=== PATIENT | male | born 1990 | race Caucasian/White ===

== ENCOUNTER 2022-09-01 06:40 | Inpatient (IN) | payer BC ==
[~2022-09-01] VITALS: Ht 177.8 cm; Wt 116.0 kg
--- NOTE | 2022-09-01 12:00 | NUR ---
PATIENT ARRIVED TO CCU ROOM 130 WITH THIS RN. PATIENT ABLE TO TRANSFER FROM [facility] TO BED ON HIS OWN. PATIENT IS STEADY ON HIS FEET, BUT SLOW AND IT IS PAINFUL TO MOVE. PATIENT IN BED AND OUTLINED RED AREAS NOTED ON RIGHT LOWER EXTREMITY. WILL CONTINUE TO CLOSELY MONITOR.
--- NOTE | 2022-09-01 13:30 | NUR ---
ULTRASOUND IN TO DO PATIENTS LEFT LOWER LEG IMAGING THAT WAS ORDERED.
--- NOTE | 2022-09-01 15:00 | NUR ---
PATIENTS LEFT FOREARM IV CAUSING PATIENT PAIN. IV SITE FLUSHED AND HAS BLOOD RETURN. REMOVED PATIENTS IV AND NEW IV PLACED IN LEFT LOWER FORARM. PATIENT TOLERATED WELL AND IV FLUSHES WITH NO ISSUES. PATIENT LIGHTS ADJUSTED. PATIENT UPDATED ON PLAN OF CARE. WILL CONTINUE TO CLOSELY MONITOR.
--- NOTE | 2022-09-01 15:35 | NUR ---
MED REC COMPLETE
--- NOTE | 2022-09-01 17:00 | NUR ---
PATIENT RESTING IN BED. PATIENTS VITALS STABLE. PATIENT UP WATCHING TV. PATIENT REPORTS PAIN IS WELL CONTROLLED AT THIS TIME. ISABELLE WILL BE IN TO CHECK BLOOD SUGAR. WILL CONTINUE TO CLSOELY MONITOR.
--- NOTE | 2022-09-01 17:00 | NUR ---
PT STOOD AT BEDSIDE TO VOID. HEART RATE UP INTO THE 130S. PT NOW BACK IN BED. HEART RATE REMAINS 110-120 AT REST. PT STATES HE SILAS SOME WEAKNESS WITH STANDING AND MILDLY SHORT OF BREATH. CALL LIGHT WITHIN REACH. WILL CONTINUE TO MONITOR.
--- NOTE | 2022-09-01 18:00 | NUR ---
UPDATED MD HANLEY OF PATIENTS HIGH BLOOD SUGAR. SEE NEW ORDERS ON EMAR. WALTON IN TO GIVE INSULIN.
--- NOTE | 2022-09-01 18:30 | NUR ---
THIS RN IN TO RECHECK PATIENTS TEMP. PATIENT REPORTS PAIN IS WELL CONTROLLED AT THIS TIME. PATIENTS AT THE BEDSIDE AND UPDATED ON PLAN OF CARE. WILL CONTINUE TO CLOSELY MONITOR. NO OTHER QUESTIONS AT THIS TIME. WILL CONTINUE TO CLOSELY MONITOR.
--- NOTE | 2022-09-01 19:35 | NUR ---
RECEIVED REPORT FROM DAY SHIFT RN. WOUNDS/REDNESS VISUALIZED WITH OTHER NURSE. PT IS A/O, RESPIRATIONS EVEN AND REGULAR. AT BEDSIDE. CALL MARY ANN HENDRICKS.
--- NOTE | 2022-09-01 20:22 | NUR ---
PATIENT UP TO THE BATHROOM WITH LIMITED ASSIST. PATIENT REPORTS PAIN 7/10, WORSE WITH MOVEMENT. SOME DRAINAGE NOTED ON MICHELLE AFTER PATIENT RETURNED TO BED. ELEAVTED RIGHT LEG ON PILLOW. PATIENT REMAINS ON MONITOR. PRN PAIN MEDS PROVIDED AND ICE OFFERED. PATIENT DECLINED ICE AT THIS TIME. PATIENT REPORTS HAVING VOIDED AND HAD LARGE BM, "NORMAL" FOR HIM. IV FLUIDS CONTINUE PER ORDER, SITE WNL X2.
--- NOTE | 2022-09-01 21:15 | NUR ---
PT MEDICATION ADMINISTRATION AND ASSESSMENT COMPLETED. OPEN WOUND TO RLE COVERED WITH NONADHERENT DRESSING. REDNESS TO RL HAS NOT SPREAD BEYOND LINE. PT RECEIVING K+ AND MAGNESIUM REPLACEMENT. IV ABX RUNNING. CALL LIGHT WITHIN REACH.
--- NOTE | 2022-09-01 22:50 | NUR ---
MEDICATION ADMINISTRATION COMPLETED. PT APPEARS TO BE SLEEPING COMFORTABLY. RESPIRATIONS EVEN AND REGULAR. CALL LIGHT WITHIN REACH.
--- NOTE | 2022-09-02 00:08 | NUR ---
PT ASSESSMENT COMPLETED. PT APPEARS TO BE SLEEPING COMFORTABLY. IV FLUIDS AND ABX RUNNING. RESPIRATIONS EVEN AND REGULAR. NO INCREASE IN REDNESS OR DRAINAGE NOTED FROM RIGHT LEG CELLULITIS. CALL LIGHT WITHIN REACH.
--- NOTE | 2022-09-02 02:35 | NUR ---
ROUNDED ON PT. PT C/O LUA, GIVEN PRN TYLENOL. IV FLUIDS RUNNING. NO INCREASE TO REDNESS ON RIGHT LEG. PT DENIES NEED TO USE RESTROOM ATT. CALL LIGHT WITHIN REACH.
--- NOTE | 2022-09-02 04:01 | NUR ---
PT ASSESSMENT COMPLETED. PT IS A/O, RESPIRATIONS EVEN AND REGULAR. ASSISTED PT TO STAND AT BEDSIDE TO USE URINAL. IV FLUIDS RUNNING.
--- NOTE | 2022-09-02 05:42 | NUR ---
MEDICATION ADMINISTRATION COMPLETED. PT IS A/O, SLEEPY. IV FLUIDS RUNNING. CALL LIGHT WITHIN REACH.
--- NOTE | 2022-09-02 07:40 | NUR ---
REPORT RECIEVED FROM GO GO DANCER RN. PATIENT RESTING IN BED. PER REPORT PATIENT OVERALL HAD A GOOD NIGHT. WILL CONTINUE TO CLOSELY MONITOR.
--- NOTE | 2022-09-02 07:44 | EKG ---
[facility] [address] [facility] [place], [place] [address] Signed Sinus tachycardia Possible Inferior infarct , age undetermined Abnormal ECG No previous ECGs available Confirmed by BRIDGETT HANLEY MD ([id number]) on 09/02/2022 7:44:19 AM Electronically Signed By: BRIDGETT HANLEY MD 09/02/22 0744 PATIENT NAME: PASQUALE MCDANIEL Electrocardiogram DATE OF : 88 PHYSICIAN: BRIDGETT HANLEY MD REPORT #: [id number] REPORT IS CONFIDENTIAL AND NOT TO BE RELEASED WITHOUT AUTHORIZATION
--- NOTE | 2022-09-02 10:00 | NUR ---
PATIENTS ASSESSMENT COMPLETED. PATIENTS BREATH SOUNDS CLEAR. BOWEL TONES ACTIVE. PATIENT REPORT HAVING A BM LAST NIGHT. PATIENTS RIGHT LEG RED AND SWOLLEN, BUT WITHIN THE BOARDER DRAWN ON LEG FROM ADMISSION. PATIENTS UPPER THIGH BLISTERS HAVE BOILED UP, BUT CURRENTLY NOT OPEN. SOME SMALLER BLISTERS NOTED ON INNER THIGH. WILL CLOSELY MONTIOR. PATIENT ALSO COMPLAINING OF RED,SWOLLE, ITCHY HANDS. BILATERAL HANDS ARE NOTED WITH ALL THE ABOVE. NO ACTUAL RASH NOTED. RASCH IN AT THE BEDSIDE TO ASSESS PATIENT AND REVIEW PLAN OF CARE. PATIENT WILL BE STARTED ON BENEDRYL. WILL MONITOR FOR ANY FURTHER ISSUES. NO OTHER RASH NOTED ON PATIENTS BODY. WILL CLOSELY MONITOR WHEN IV ABX ARE INFUSING.
--- NOTE | 2022-09-02 10:30 | NUR ---
PATIENT RESTING IN BED. LOTION APPLIED TO PATIENTS HANDS TO SEE IT IT HELPS SOOTHE THEM. ICE PACK PROVIDED WELL. MEDICATIONS GIVEN FOR ITCHYNESS ABOUT 45 MIN PRIOR. WILL CONTINUE TO CLOSELY MONITOR. PATIENTS ABX INFUSING. NO FURTHER SIGNS OF REACTION NOTED.
--- NOTE | 2022-09-02 10:36 | NUR ---
OVER TO THE UNIT, UPDATE RECVD FROM DANIEL WISE. INTO SEE PATIENT. PATIENT LIVES AT HOME WITH HIS AND CHILDREN. 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 PATIENT STATES NO DISCHARGE NEEDS AT THIS TIME. PATIENT HAS DISCUSSED CHANGE HIS PCP IN THE FUTURE. PCP LIST GIVEN. PATIENT STATES THAT HE WILL DISCUSS HIS OPTIONS WITH HIS WHO IS ALSO WANTING TO TRANSFER. ADVISED PATIENT IF HE FEELS HE HAS ANY OTHER DISCHARGE NEEDS HE WILL LET THE STAFF KNOW.
--- NOTE | 2022-09-02 10:45 | NUR ---
SPOKE WITH MD HANLEY ABOUT A SWAB COLLECTION FROM PATIENTS INFECTION SITE. NO NEW ORDERS AT THIS TIME.
--- NOTE | 2022-09-02 11:16 | NUR ---
PATIENT RESTING. PATIENTS HANDS REMAIN UNCHANGED. WILL CONTINUE TO CLOSELY MONITOR.
--- NOTE | 2022-09-02 12:30 | NUR ---
PATIENT GAVE SELF SMALL BEDBATH. PATIENT ALSO REFUSED LUNCH AT THIS TIME. WILL LET STAFF KNOW WHEN HE'S HUNGRY. CALL LIGHT AND PERSONAL ITEMS IN EASY REACH
--- NOTE | 2022-09-02 13:00 | NUR ---
PATIENT UP TO THE BATHROOM WITH HIS TO ASSIST. THIS RN PROVIDED PATIENT WITH WASHCLOTH AND WATER BASIN WITH SOAP TO WASH HIS BODY. EDUCATED PATIENT NOT TO SCRUB BLISTERS. PATIENT CHANGED HIS GOWN. NEW LINEN ON BED. FLOOR CLEANED. PATIENT NOW RESTING IN BED. WILL CONTINEU TO CLOSELY MONITOR.
--- NOTE | 2022-09-02 14:26 | NUR ---
PATIENT ASLEEP IN BED AT THIS TIME. PATIENT CALL APPROPRIATELY. OTHER RN IN TO START IV ABX. NO OTHER NEEDS AT THIS TIME. WILL CONTINUE TO CLOSELY KATARINA.
--- NOTE | 2022-09-02 16:00 | NUR ---
PATIENTS AND SON IN AT THE BEDSIDE TO VISIT. THIS RN UPDATE ARANA OF DARKER URINE WITH DECREASED URINE OUTPUT. PATIENT HAS REMAINED WITH A HR 95-110. BLOOD PRESSURES 95-115 SYSTOLIC. WILL CONTINUE TO CLOSELY MONTIOR.
--- NOTE | 2022-09-02 16:05 | NUR ---
SEE NEW ORDER FOR BOLUS OF FLUID AND INCREASE OF IV FLUIDS. PATIENT HAS BEEN ENCOURAGED TO HAVE GOOD ORAL INTAKE THROUGH THE DAY AND HAS DONE WELL WITH THIS WITH MINIMAL CHANGE TO URINE OUTPUT.
--- NOTE | 2022-09-02 17:59 | NUR ---
PATIENT FINISHED WITH HIS DINNER. PATIENT TOELRATED WELL. PATIENT NOW RESTING BACK IN BED. PATIENT ON 1L NC D/T SPO2 90% ON RA WITH REST. PATIENT NOW 96% ON 1L. PATIENT HAS URINAL AT THE BEDSIDE. PATIENT CALLS APPROPRIATELY. PATIENT STATES OCCASIONAL COUGH. THIS RN HAS NOT HEARD PATIENT COUGHING. WILL CLOSELY MONITOR. PATIENT FEELS SLEEPIER THIS AFTERNOON. PATIENT IS GETTING BENEDRYL SCHEDULED D/T RASH ON BILATERAL HANDS. PATIENT NOTED TO FEEL A LITTLE MORE CHILLY THIS EVENING. CHECKED TEMPERATURE IT WAS 99.1. WILL CONITNUE TO CLOSELY MONTIOR.
--- NOTE | 2022-09-02 19:31 | NUR ---
RECEIVED REPORT FROM DAY SHIFT NURSE. VISUALIZED RIGHT LEG CELLULITIS WITH DAY NURSE. PT IS A/O, RESPIRATIONS EVEN AND REGULAR. AT BEDSIDE.
--- NOTE | 2022-09-02 20:20 | NUR ---
PT ASSESSMENT AND MEDICATION ADMINISTRATION COMPLETED. PT IS A/O, RESPIRATIONS EVEN AND REGULAR. RIGHT LEG AND HAND SWELLING/REDNESS MONITORED. NO CHANGE SINCE START OF SHIFT. PT IS AT BEDSIDE. CALL LIGHT WITHIN REACH.
--- NOTE | 2022-09-02 22:10 | NUR ---
TO PT ROOM FOR MEDICATION ADMINISTRATION. PT IS A/O. SKIN ASSESSED/MONITORED FOR CHANGES. NO CHANGES NOTED. CALL LIGHT WITHIN REACH.
--- NOTE | 2022-09-03 00:20 | NUR ---
PT UP TO USE URINAL. DRAINAGE NOTED FROM BLISTERS ON RIGHT UPPER LEG. DRAINAGE IS SEROSANGUINEOUS. CALL LIGHT WITHIN REACH.
--- NOTE | 2022-09-03 01:58 | NUR ---
ROUNDED ON PT. PT APPEARS TO BE SLEEPING COMFORTABLY. RESPIRATIONS EVEN AND REGULAR. REMAINS ON 1L NC WHILE SLEEPING. NO DRAINAGE NOTED TO RIGHT LEG. IV FLUIDS RUNNING.
--- NOTE | 2022-09-03 03:06 | NUR ---
NEW BAG LR ADMINISTERING PER ORDERS ON EMAR. PATIENT APPEARS TO BE RESTING SOUNDLY, EYES CLOSED, APPEARS CALM. VS WNL. BREATHING EVEN AND REGULAR, 02 SAT 94% RA. CALL LIGHT WITHIN REACH.
--- NOTE | 2022-09-03 03:43 | NUR ---
PT ASSESSMENT COMPLETED. PT REQUESTED BENADRYL, TYLENOL GIVEN FOR HEADACHE. PT IS A/O, RESPIRATIONS EVEN AND REGULAR. CALL LIGHT WITHIN REACH.
--- NOTE | 2022-09-03 06:04 | NUR ---
TO PT ROOM FOR MEDICATION ADMINISTRATION. PT IS A/O, RESPIRATIONS EVEN AND REGULAR. IV FLUIDS RUNNING. NO NEW DRAINAGE NOTED TO RIGHT LEG.
--- NOTE | 2022-09-03 07:30 | NUR ---
REPORT RECEIVED. PATIENT IS RESTING WITH HOB ELEVATED SLIGHTLY. IVF PATENT.
--- NOTE | 2022-09-03 08:00 | NUR ---
ASSESSMEMT DONE. RIGHT THIGH IS SWOLLEN AND WITH MANY BLISTERS, SOME OF THE BLISTERS ARE DRAINING. RATES PAIN IN RIGHT LEG 4/10, HAS A HEADACHE WELL. ENC DEEP BREATHING. TALKED WITH PATIENT ABOUT POC FOR THE DAY, INDICATES UNDERSTANDING.
--- NOTE | 2022-09-03 09:00 | NUR ---
TOOK BREAKFAST POOR. STATES HE HASN'T HAD AN APPETITE. DENIES NAUSEA. SAT AT BEDSIDE TO VOID. OXYCODONE GIVEN FOR PAIN.
--- NOTE | 2022-09-03 10:00 | NUR ---
SLEEPING, VANCO INFUSING.
--- NOTE | 2022-09-03 12:00 | NUR ---
ASSESSMENT COMPLETE. HUMALOG INSULIN 9 UNITS GIVEN. SITTING UP IN BED FOR LUNCH. NO CHANGES IN RIGHT LEG CELLULITIS. HAS BEEN TAKING WATER WELL. IVF NOW INUSING AT 100 ML/HR.
--- NOTE | 2022-09-03 14:30 | NUR ---
OXYCODONE 5 MG IV GIVEN FOR RIGHT LEG PAIN.
--- NOTE | 2022-09-03 16:00 | NUR ---
ASSESSMENT UNCHANGED. HAS SLIGHT FEVER. DR. ARANA AWARE. NO FUTHER ORDERS AT THIS TIME.
--- NOTE | 2022-09-03 17:00 | NUR ---
UP TO SHOWER CHAIR. TO SHOWER IN 118.
--- NOTE | 2022-09-03 17:45 | NUR ---
TOLERATED SHOWER WELL. BACK TO BED W/O INCIDENT. ACCUCHECK-296. NOVALOG 9 UNITS GIVEN. LONG ACTIVE INSULIN 50 UNITS SQ GIVEN. PATIENT IS NOW REFUSING DINNER. SAID HE WOULD TRY AND EAT THE GRAPES AND FRUIT CUP. WHILE PATIENT WAS IN THE SHOWER, A FEW OF THE BIG BLISTERS ON THE UPPER INNER RIGHT THIGH DID BREAK. PATIENT SAID HIS THIGH IS ITCHING. NO TREATMENT GIVEN.
--- NOTE | 2022-09-03 19:19 | NUR ---
SLEEPING, NO DISTRESS NOTED. IVF INFUSING AT 75 ML/HR. REPORT TO NEXT SHIFT.
--- NOTE | 2022-09-03 21:00 | NUR ---
PATIENT UP TO THE BEDSIDE TO VOID. PATIENT NEEDS SOME ASSISTANCE AND HOLDS THE WALKER FOR STABILITY. PATIENT DRIBBLES URINE DOWN BOTH LEGS AND ONTO THE FLOOR. CHUCKS ON BED HAVE A MODERATE AMOUNT OF DRAINAGE FROM THE RIGHT LEG BLISTERS. CHUCKS CHANGED AND PATIENT ASSISTED IN CLEANING UP. DISCUSSED WOUND CARE OPTIONS WITH PATIENT; BOTH HIM AND HIS WOULD PREFER THE OPEN AREAS BE COVERED. PRN PAIN MEDS PROVIDED.
--- NOTE | 2022-09-03 21:45 | NUR ---
PATIENT'S RIGHT LEG CLEANED WITH WOUND CLEANSER AND PAT DRY. LARGE AMOUNT OF YELLOW DRAINAGE NOTED IN INNER RIGHT THIGH. PETROLIUM/IODINE INFUSED GAUZE APPLIED FOR BARRIER PROTECTION IN UPPER THIGH, THEN MEDI-HONEY ON NON-ADHEARNT PADS ON LOWER. COVERED WITH ABD PADS FOR ABSORPTION. WRAPPED THIGH WITH JEFFREY WRAP. LOWER LEG COVERED WITH NON-ADHEARANT PAD AND KERLEX. TEDHOSE APPLIED TO BOTH LEGS. ASSISTED PATIENT TO PUT FRASH LOOSE FITTING BOXERS ON. MICHELLE PADS CHANGED. PATIENT TOLERATED WITH ADEQUATE PAIN CONTROL AND APPRICIATES THE COMPRESSION. RESTING IN BED. NO OTHER NEEDS AT THIS TIME. AT BEDSIDE.
--- NOTE | 2022-09-03 22:48 | NUR ---
PATIENT PROVIDED WITH SCHEDULED MEDS, INCLUDING ACCU CHECK AND SSI. PATIENT'S IS CONCERNED ABOUT PATIENT'S ABILITY TO PROVIDE HIS OWN INSULIN SHOTS. EDUCATION PROVIDED AND PATIENT SUCESSFULLY ADMINISTERED HIS OWN INSULIN SHOT. PATIENT'S AT BEDSIDE. ASSISTED PATIENT TO USE THE URNAL. NO OTHER NEEDS AT THIS TIME. CALL LIGHT IN REACH.
--- NOTE | 2022-09-04 01:21 | NUR ---
PT ASKS FOR URINAL, PROVIDED. PT STATES HE HAS 3/10 RIGHT LEG PAIN, PRN PAIN MED PROVIDED. PRN SLEEP MED PROVIDED. CALL LIGHT IN REACH.
--- NOTE | 2022-09-04 02:30 | NUR ---
PATIENT PLACED ON 2L NC DUE TO APPARENT SLEEP APNEA. PATIENT WOKE EASILY AND DENIED ANY OTHER NEEDS.
--- NOTE | 2022-09-04 05:00 | NUR ---
PATIENT CALLED FOR ASSISTANCE USING THE URNAL. PATIENT VOIDED 700 MLS CLEAR URINE. REPORTS FEELING MORE RESTED THIS MORNING. COMPRESSION ON LEG FEELS GOOD AND NO DRAINAGE NOTED. IV SITE WNL, IV FLUIDS PER ORDER. ORAL TEMP WNL BUT PATIENT IS HOT AND SWEATING. WILL CONTINUE TO MONITOR.
--- NOTE | 2022-09-04 08:00 | NUR ---
ASSESSMENT DONE. STATES HE FEELS BETTER TODAY. DRESSING TO RIGHT LEG INTACT, DRESSING IS DRY TO TOUCH. LEO HOSE ON. IVF PATENT AT 50 ML/HR INFUSING. TALKED WITH PATIENT ABOUT POC FOR DAY, INDICATES UNDERSTANDING.
--- NOTE | 2022-09-04 08:30 | NUR ---
VANCO TROUGH DRAWN.
--- NOTE | 2022-09-04 09:15 | NUR ---
RESTING, NO DISTRESS NOTED. TALKED WITH PHARMACY ABOUT VANC TROUGH LEVEL, PHARMACY WILL TALK WITH DR. ARANA ABOUT THIS.
--- NOTE | 2022-09-04 11:00 | NUR ---
DRESSING TO RIGHT THIGH REDRESSED. TOLERATED WELL.
--- NOTE | 2022-09-04 11:35 | NUR ---
ACCUCHECK 305. HUMALOG INSULIN 16 UNITS GIVEN. PATIENT GAVE HIMSELF THE INSULIN. DID WELL. ASSESSMENT DONE. PATIENT REMAINS IN ROOM. IVF CONTINUES TO INFUSE AT 50 ML/HR.
--- NOTE | 2022-09-04 13:57 | NUR ---
ADMINISTERED MEDICATIONS SCHEDULED ON OCT. PATIENT RESTING BACK IN BED, WITH AT BEDSIDE. PROVIDED EDUCATION WITH POTASSIUM AND THE MEDICATION. ASKING QUESTIONS. ANSWERED QUESTIONS AND CONCERNS. PATIENT VOIDED 600 ML OF YELLOW URINE. CALL LIGHT WITHIN REACH. NO OTHER NEEDS AT THIS TIME.
--- NOTE | 2022-09-04 15:07 | NUR ---
PATIENT UP AMBULATING TO WITH WALKER AND STBY ASSIST. TOLERATED FAIR AT FIRST AND ABLE TO AMBULATE TO THE NURSES STATION BEFORE REQUESTING TO GO BACK TO ROOM. PATIENT BECAME TACHY HR NOTED 120-125 WITH ACTIVITY, PATIENT BECAME PALE AND RATED PAIN 7/10 ON PAIN SCALE. PATIENT ALSO ROTATES FOOT OUT LATERALLY AND TAKES STEPS WITH TIPPY TOES. PATIENT APPEARS UNSTEADY WITH WALKER, PROVIDED EDUCATION AND DIRECTION WITH FALL SAFETY AND IMPORTANCE OF STRAIGHTENING LEG MORE. PATIENT ABLE TO DEMONSTRATE TEACHING, BUT TOLERATED POORLY. BACK TO ROOM PATIENT TO BED, APPLIED NEW ABD DRESSINGS TO BLISTERS THAT ARE DRAINING ON THE MEDIAL ASPECT OF THE INNER THIGH. NOTED INCREASED FLUID IN BLISTERS AFTER ACTIVITY. APPLIED LIGHT PRESSURE AND ABLE TO MOBILIZE FLUID OUT THROUGH ESTABLISHED OPENING OF BLISTER. REAPPLIED JEFFREY WRAP TO REINFORCE ABDS. PATIENT VERBALIZED DRESSING COMFORTABLE. REPORTED ACTIVITY AND FINDINGS TO PRIMARY NURSE JAMEL.
--- NOTE | 2022-09-04 16:00 | NUR ---
ASSESSMENT UNCHANGED. PATIENT REMAINS IN ROOM.
--- NOTE | 2022-09-04 16:40 | NUR ---
AMBULATED TO BR TO USE URINAL. USING WALKER WHEN AMBULATING. BACK TO BED W/O INCIDENT.
--- NOTE | 2022-09-04 18:34 | NUR ---
PATIENT AMBULATED TO BATHROOM, SBA W/WALKER. TOLERATED VERY WELL. PT STATED, "IT WAS EASIER TO GET UP THIS TIME". PATIENT CURRENTLY BACK IN BED AFTER VOIDED. CALL LIGHT WITHIN REACH.
--- NOTE | 2022-09-04 19:45 | NUR ---
PT ASSESSED AND FOUND TO BE RESTING COMFORTABLY IN BED. PT IS A&O X 4 WITH A GCS OF 15. SAFETY CHECK PERFORMED, AND ALARM LIMITS SET. NURSE CALL LIGHT PROVIDED TO PT AT BEDSIDE. PT WITH NO NEEDS OR QUESTIONS AT THIS TIME.
--- NOTE | 2022-09-05 06:25 | NUR ---
PT REMAINS AWAKE, ALERT AND ORIENTED WITH A GCS OF 15. PT IS CAM ICU NEGATIVE. PT MOVES ALL FOUR EXTREMITIES WITH PURPOSE AND CMS INTACT THROUGHOUT. PT HAS BEEN IN A NSR, NORMOTENSIVE AND A-FEBRILE THROUGHOUT THE NIGHT. PT WITH GOOD ORAL INTAKE, AND ADEQUATE UO. PT'S R. LOWER EXTREMITY CONTINUES TO BE WARM TO TOUCH, WITH EDEMATOUS ERYTHEMA AND WEEPING PUSTULES ALONG GROWN AND THIGH. LABS: PT WITH WORSENING LEUKOCYTOSIS. CREATNINE SLIGHTLY IMPROVED. MD CONSULTED REGARDING WORSENING WBC COUNT AND CONCERN FOR PUD PROPHYLAXIS. NO NEW ORDERS OBTAINED.
--- NOTE | 2022-09-05 08:00 | NUR ---
ASSESSMENT DONE. ACCUCHECK 151 4 UNIT HUMALOG INSULIN TO BE GIVEN. OOB TO BR TO VOID TO URINAL THEN TO CHAIR. USING WALKER FOR AMBULATION. TALKED WITH PATIENT ABOUT POC FOR THE DAY, INDICATES UNDERSTANDING. DRESSING TO RIGHT UPPER THIGH INTACT WITH DRAINAGE NOTED ON DRESSING AND CHUX.
--- NOTE | 2022-09-05 08:48 | NUR ---
SITTING IN CHAIR EATING BREAKFAST. IVF INFUSING.
--- NOTE | 2022-09-05 09:00 | NUR ---
REMAINS IN CHAIR. IS W/O C/O. ENC DEEP BREATHING.
--- NOTE | 2022-09-05 09:31 | NUR ---
NAPPING IN CHAIR. RESP EVEN AND NON-LABORED. O2 SAT ON RA-93.
--- NOTE | 2022-09-05 10:10 | NUR ---
UPDATE RECVD FROM JAMEL WISE, PATIENT DOING BETTER. PER AM MEETING PATIENT MAY TRANSFER TO MS FLOOR TODAY. PATIENT UP TO SHOWER WITH IRIS MOSES, APPEARS TO BE DOING WELL.
--- NOTE | 2022-09-05 10:50 | NUR ---
DR. ARANA HERE TO SEE PATIENT. DRESSING TO RIGHT THIGH TAKEN OFF BY DR. ARANA. DR. ARANA TALKED WITH PATIENT ABOUT CELLUTITIS INFECTION AND CONTINUED CARE. PATIENT THEN TO BR TO VOID. AMBULATED TO SHOWER IN ROOM 118. SPECIALTY SALES REPRESENTATIVE TO GIVE PATIENT SHOWER.
--- NOTE | 2022-09-05 11:00 | NUR ---
PATIENT AMBULATED TO [facility] FOR SHOWER. PATIENT WAS ABLE TO CLEAN MOST OF RIGHT THIGH WITH LITTLE ASSISTANCE, REMOVING SKIN. THIS IT WEB DEVELOPMENT CONSULTANT WASHED LOWER PART OF HIS LEG. PATIENT AMBULATED BACK TO ROOM, SITTING IN CHAIR. BILLIE MCCULLOUGH IN TO REDRESS THIGH. PATIENT WAS PAINFUL WITH ACTIVITY, BUT TOLERATED WELL.
--- NOTE | 2022-09-05 11:30 | NUR ---
RIGHT THIGH DRESSING REAPPLIED, TOLERATED DRESSING CHANGE WELL.
--- NOTE | 2022-09-05 12:00 | NUR ---
ASSESSMET COMPLETE. ACCHUCHEK DONE, 204, HUMALOG INSULIN 4 UNITS SQ GIVEN.
--- NOTE | 2022-09-05 12:40 | NUR ---
OXYCODONE GIVEN FOR PAIN.
--- NOTE | 2022-09-05 15:00 | NUR ---
BACK TO BED. HAS BEEN SITTING IN CHAIR MOST OF THE DAY.
--- NOTE | 2022-09-05 15:15 | NUR ---
ORDERS RECIEVED TO TRANSFER PATIENT TO MED-SURG. PATIENT TO STAY IN ROOM 130 HOUSE CONVENIENCE. PATIENT IS AWARE. MONITOR DC'D. BACK TO BED FROM CHAIR. MOVING WELL.
--- NOTE | 2022-09-05 17:10 | NUR ---
ACCUCHECK 187. HUMALOG INSULIN 4 UNITS GIVEN. UP TO BR TO VOID.THEN TO CHAIR.
--- NOTE | 2022-09-05 19:31 | NUR ---
NO CHNAGES. REPORT TO NEXT SHIFT.
--- NOTE | 2022-09-05 20:00 | NUR ---
PT ASSESSED AND FOUND TO BE SITTING IN CHAIR WITH PRESENT. PT DOES NOT APPEAR TO BE IN ANY DISTRESS. PT IS A&O X 4 WITH A GCS. PT FOLLOWS COMMANDS APPROPRIATELY AND ABLE TO MOVE ALL EXTREMITIES WITH PURPOSE. V/S ASSESSED. PT NOTED TO BE FEBRILE. DR. ARANA CONSULTED AND ORDERS TO OBTAIN A NEW SET IF BC'S OBTAINED. PT WITH NO NEEDS AT THIS TIME. CALL LIGHT AT PATIENTS SIDE.
--- NOTE | 2022-09-06 06:17 | NUR ---
Assessment performed with no acute measures necessary. All vital signs stable with no indications or complaints of respiratory distress, fever or pain. Patient is awake but resting in bed. Will continue to monitor.
--- NOTE | 2022-09-06 06:19 | NUR ---
Patient notified of move to rm 124. All vital signs stable.
--- NOTE | 2022-09-06 07:40 | NUR ---
pt laying in bed. bs taken. no further needs. call light within reach
--- NOTE | 2022-09-06 09:56 | NUR ---
MORNING ASSESSMENT COMPLETE. PT LYING AWAKE IN BED. APPEARS TO BE IN NO DISTRESS. STATES PAIN IS 3/10, DISCUSSED PAIN MEDICATION SCHEDULE. RIGHT LEG ELEVATED ON PILLOWS, REDNESS TO RIGHT INNER THIGH/GROIN RECEDING FROM PREVIOUSLY OUTLINED AREA. XEROFORM TO OPEN AREA IN PLACE, PEELNG SKIN NOTED OUTSIDE OF DRESSING. COMPRESSION STOCKINGS IN PLACE TO BLE. RIGHT KEN NOTED TO HAVE XEROFORM AND MEDI HONEY IN PLACE OVER SCATTERED SCABS. PT DENIES FURTHER NEEDS AT THIS TIME. CALL LIGHT IN REACH.
--- NOTE | 2022-09-06 13:40 | NUR ---
Spoke with Ky. He wants to go home. Denies needs, but states he could use a walker or a cane. Does not think he will need for long. I gave him the sheet for [employer]. Let him know they will lend him medical equipment for 3 months for free.
--- NOTE | 2022-09-06 19:58 | NUR ---
RECEIVED REPORT FROM DAY SHIFT RN. PATIENT IS RESITNG IN BED. PRESENT IN ROOM. DAY SHIFT RN ADMIN PAIN MEDICATION. PATIENT ASSISTED TO BR A SBA W/FWW. PATIENT ABLE TO VOID. PATIENT IS BACK IN BED RESTING. NO FURTHER NEEDS NOTED. CALL LIGHT IN REACH.
--- NOTE | 2022-09-06 22:04 | NUR ---
PATIENT ASSISTED TO THE BR A SBA W/FWW. PATIENT ABLE TO VOID. PATIENT IS BACK IN BED RESTING. PATIENTS VITALS TAKEN AND RECORDED. INTAKE AND OUTPUT RECORDED. PATIENTS IV FLUSHED. PATIENTS PM MEDS PER ORDER. PATIENT RATES PAIN AT A 3/10 AND DENIES THE NEED FOR INTERVENTION AT THIS TIME. PATIENT PROVIDED WITH FRESH WATER. SEE ASSESMENT FOR WOUND DOCUMNETATION ON RLE. PATIENT DENIES ANY FURTHER NEEDS. CALL LIGHT IN REACH.
--- NOTE | 2022-09-06 23:00 | NUR ---
SBA. PATIENT GOT UP TO THE BATHROOM USING WALKER. PATIENT VOIDED 600ML YELLOW URINE. PATIENT IS BACK IN BED. DRINKING CUP REFILLED WITH TAP WATER. NO OTHER NEEDS AT THIS TIME.
--- NOTE | 2022-09-07 00:01 | NUR ---
PATIENT RATES PAIN AT A 4/10, PRN PAIN MEDICATION PER ORDER. PATIENT DENIES ANY FURTHER NEEDS. CALL LIGHT IN REACH.
--- NOTE | 2022-09-07 02:32 | NUR ---
PT AWAKE AND RIGHT THIGH DRESSING WAS BECOMING LOOSE, PRIMARY RN MAXINE REQUESTED FOR WOUND CONSULT TO BE COMPLETED. JEFFREY BANDAGE, ABD AND XEROFORM DRESSING REMOVED, XEROFORM GAUZE DRY AND LOOSELY ADHERED IN SEVERAL AREAS. WOUND MEASURED 19XM X 20CM X 1-2MM, SEVERAL AREAS FULL THICKNESS TO ADIPOSE. WOUND CLEANSED WITH HEBICLEANSE SOAP AND WATER, HYDROGELL IMPREGNATED GAUZE APPLIED TO WOUND BED, COVERED WITH NON- ADHERENT FOAM ALLEVYN, SECURED WITH KERLIX AND JEFFREY. PT NOW RESTING ON LEFT SIDE WITH LEG SUPPORTED WITH PILLOW.
--- NOTE | 2022-09-07 02:35 | NUR ---
WOUND CARE COMPLETED BY THIS RN AND ROAD MACHINE OPERATOR. SEE WOUND CARE NOTE. PATIENT RATES PAIN AT A 3/10, PRN MEDS PER ORDER. PATIENT DENIES ANY FURTHER NEEDS. CALL LIGHT IN REACH.
--- NOTE | 2022-09-07 03:12 | NUR ---
PATIENT CALLLED TO HAVE HIS URINAL EMPTIED. DONE. DRINKING CUP REFILLED WITH TAP WATER. NO OTHER NEEDS AT THIS TIME.
--- NOTE | 2022-09-07 04:17 | NUR ---
PATIENT IS RESTING IN BED WITH EYES CLOSED, RR 18. CALL LIGHT IN REACH.
--- NOTE | 2022-09-07 06:06 | NUR ---
PATIENTS AM MEDS PER ORDER. VITALS TAKEN AND RECORDED. INTAKE AND OUTPUT RECORDED. IV FLUSEHD AND SL PER ORDER. PATIENT RATES PAIN AT A 1/10 AND DENIES THE NEED FOR INTERVENTION AT THIS TIME. NO FURTHER NEEDS NOTED. CALL LIGHT IN REACH.
--- NOTE | 2022-09-07 07:04 | NUR ---
REPORT FROM Monika MCKEON RN. PATIENT ALERT AND ORIENTED. DENIES NEEDS AT THIS TIME. CALL LIGHT IN REACH.
--- NOTE | 2022-09-07 10:26 | NUR ---
C/O DRESSING SLIPPING TO RIGHT LEG. JEFFREY WRAP REMOVED AND REPLACED. PRN ANALGESIC ADMINISTERED. DENIES OTHER NEEDS AT THIS TIME.
--- NOTE | 2022-09-07 12:00 | NUR ---
Spoke with Ky, he cont. to want to go home, but understands he needs to be off IV antibiotics. He denies any needs.
--- NOTE | 2022-09-07 14:18 | NUR ---
PT ALERT, ORIENTED AND SITTING UP IN BED EATING LUNCH. PT SEEMED SOMEWHAT SURPRISED BY MY VISIT,JUST BEGAN TO CONNECT AND STAFF CAME TO CARE FOR PT. GAVE BLESSING AND WILL CHECK BACK
--- NOTE | 2022-09-07 17:54 | NUR ---
JEFFREY WRAP AND GAUZE REMOVED DUE TO DISCOMFORT AND SLIDING OF DRESSING. REWRAPPED WITH GAUZE AND KERLIX TO PREVENT MOVEMENT OF DRESSING. TOLERATED WELL. DENIES OTHER NEEDS AT THIS TIME. CALL LIGHT IN REACH.
--- NOTE | 2022-09-07 19:15 | NUR ---
BEDSIDE REPORT RECEIVED, PT RESTING WITHOUT REQUEST, RECENTLY VOIDED YELLOW URINE, DENIES REQUESTS.
--- NOTE | 2022-09-07 19:45 | NUR ---
PT AWAKE REQUESTING HIS BANDAGE TO BE ADJUSTED, PLAN TO COMPLETE WITH ADDITIONAL RN.
--- NOTE | 2022-09-07 20:22 | NUR ---
PT AWAKE AND ALERT, VS DONE, PT VOIDING WELL PER URINAL REQUESTING PAIN MED, MEDICATED WITH OXYCODONE 10MG PER REQUEST, ASSESSMENT COMPLETED, ACCUCHECK 170, 3 UNITS INSULIN GIVEN PER SS ORDER. RIGHT THIGH DRESSING CHANGED PER MARÍA WISE. SL INTACT RIGHT HAND. PT ATTEMPTING TO REST AFTER DRESSING CHANGE.
--- NOTE | 2022-09-07 22:00 | NUR ---
PT RESTING QUIETLY, WITHOUT REQUEST.
--- NOTE | 2022-09-08 00:33 | NUR ---
PT AWAKE AND ALERT, VOIDING WELL PER URINAL, REQUESTING TYLENOL AND OXYCODONE 5MG FOR RIGHT UPPER LEG, GIVEN PER ORDER, IV ANTIBIOTIC COMPLETED RIGHT SL FLUSHES WELL SITE INTACT, PT REPOSITION SELF TO SIDE, WITHOUT OTHER REQUEST, RESTING.
--- NOTE | 2022-09-08 02:30 | NUR ---
PT ASLEEP, WITHOUT DISTRESS, FRESH WATER GIVEN.
--- NOTE | 2022-09-08 04:22 | NUR ---
PT AWAKE, REQUESTING URINAL TO BE EMPTIED, VOIDING WELL, REQUESTING OXYCODONE 5 MG FOR RIGHT THIGH PAIN, MEDICATED PER ORDER, WITHOUT FURTHER REQUEST, RESTING.
--- NOTE | 2022-09-08 04:26 | NUR ---
PT AWAKE AND ALERT, RESP REG, REQUESTING OXYCODONE 5MG FOR PAIN 4/10 IN RIGHT THIGH, MEDICATED PER ORDER, VOIDING WELL, WITHOUT OTHER REQUEST.
--- NOTE | 2022-09-08 05:25 | NUR ---
PT AWAKE, ALERT, STATES PAIN LEVEL IS DOWN TO 2/10, DENIES NEEDS, VS DONE, LAB IN FOR AM BLOOD DRAW, I/0 AND ASSESSMENT DONE.
--- NOTE | 2022-09-08 05:44 | NUR ---
ANCEF INFUSING WELL PER PUMP PER RIGHT HAND SL, SITE INTACT, PT RESTING WITH EYES CLOSED, RESP REG.
--- NOTE | 2022-09-08 09:00 | NUR ---
REPORT RECEIVED FROM NIGHT RN AND PT CARE RESUMED. PT. IS ALERT AND ORIENTED TO ALL. HE REPORTS 3/10 PAIN IN RIGHT THIGH. REFUSES PAIN MED. AT THIS TIME. DRESSING ON R THIGH REWRAPPED BY KIANNA WISE. DRESSING IS DRY AND INTACT. LEG ELEVATED ON PILLOW. ASSESSMENT COMPLETED AND MEDS ADMIN. PT. ASSISTED WITH BREAKFAST SET UP. DISCUSSED SHOWERING, AMBULATING AND GOING OUTSIDE. CALL LIGHT IN REACH.
--- NOTE | 2022-09-08 09:28 | NUR ---
QUAD SWAB COLLECTED
--- NOTE | 2022-09-08 09:30 | NUR ---
PT. REQUESTS PRN PAIN MED. C/O 11/28 PAIN IN RIGHT THIGH. CISO. WILL CONTINUE TO MONITOR.
--- NOTE | 2022-09-08 10:37 | NUR ---
Patient is alert and oreiented. He complains often of pain and winces. He was given 5mg po oxycodone. Lungs sounded good but where slightly diminished anterior and posterior in all quadrants, no crackles. GI asswessment consisted of not a lot of auditory sounds, very little in the uper and lower right abdomen, left sounds were WDL. Skin looked adgitated, red, adipose tissue exposed, LRE, upper thigh. Broght a warm blanket to patuient as well as changed thermastat to 70.
--- NOTE | 2022-09-08 11:40 | NUR ---
PT. C/O PRESSURE FROM JEFFREY WRAP AND REQUESTS THAT IT BE REMOVED. SKIN AROUND WOUND ON RIGHT THIGH IS INDURATED AND REDDENED. JEFFREY WRAP REMOVED AND KERLEX HAD MODERATE SEROUS DRAINAGE. KERLEX REPLACED. PT. AMBULATED TO CHAIR WITH FWW. IV ABX ADMIN. EDUCATED ON S/SX OF INFILTRATION. WILL CONTINUE TO MONITOR.
--- NOTE | 2022-09-08 12:01 | NUR ---
Chewcked blood sugar which was 166. Bed was changed. Patient was moved to chair and kurlex was chaned, kip wrap taken off. pain 09/30
--- NOTE | 2022-09-08 13:59 | NUR ---
I checked on the patient, checked vitals, administered Acef, listened to his lungs and they were easier to hear with him sitting up. He mentioned liking sitting in his chair because he could see his childrens pictures. I offered to relocate his pictures so he can see them better
--- NOTE | 2022-09-08 14:28 | NUR ---
PT. STATES WILL BE HERE WITH CHILDREN AT 1800 AND DISCUSSED PAIN MANAGEMENT BEFORE AMBULATING. ASSESSMENT COMPLETED.
--- NOTE | 2022-09-08 14:34 | NUR ---
Gave patient warm planket. Transitioned patient from chair to bed with walker, safely. Turned off lights per the request of patient.
--- NOTE | 2022-09-08 15:09 | NUR ---
No change in plan for CM.
--- NOTE | 2022-09-08 15:39 | NUR ---
PT. DRESSING ON RIGHT THIGH IS NO LONGER INTACT. HYDROGEL DRESSING DRIED TO WOUND. IRRIGATED WITH NS AND REMOVED. DRESSING REPLACED PER ORDER. PT. REPORTS 3/10 PAIN THAT IS TOLERABLE AFTER DRESSING CHANGE. CALL LIGHT IN REACH.
--- NOTE | 2022-09-08 16:54 | NUR ---
I gave the patient a bed bath, a shampoo head cap, a toothbrush, tooth paste and a bason, lotion as well as I lathered lotion on the dry areas of his leg and new socks.
--- NOTE | 2022-09-08 17:54 | NUR ---
I chekced vitals of patient and his flat expression seems like it is worsening. It seems like he has depression. He is not watching anyhting or trying to occupy his brain, he is only sitting and stairing into space.
--- NOTE | 2022-09-08 21:20 | NUR ---
PT RESTING IN BED A&O X4. PT REPORTS PAIN IS 2/10 AT THIS TIME, NO NEED FOR PRN MEDS PER PT D/T TOLERABLE. PT REPORTS NO NAUSEA, N/T, DIZZINESS, SOB AT THIS TIME. IV SITE WNL, IV ABX INFUSING AT THIS TIME. LUNG SOUNDS ARE CLEAR THROUGHOUT, PULSES PRESENT THROUGHOUT, BOWEL TONES ARE HYPOACTIVE X4. VSS. PT USED IS X3 W/THIS RN IN ROOM REACHING 2200. KERLEX AND JEFFREY WRAP REWRAPPED OVER WOUND, REDNESS HAS RECEEDED FROM MARKED LINE, ALLEVYNS ARE C/D/I. LEG IS ELEVATED ON PILLOW AT THIS TIME. CALL LIGHT WITHIN REACH, NO FURTHER NEEDS AT THIS TIME. ICE WATER PROVIDED.
--- NOTE | 2022-09-08 23:00 | NUR ---
in to empty urinal for pt, pt provided a pillow, asked to see rn for a question, no further needs at this time
--- NOTE | 2022-09-08 23:00 | NUR ---
IN PT ROOM FOR START OF ABX VANCO INFUSION. IV SITE WNL, NO BLOOD RETURN BUT FLUSHES W/EASE, PT REPORTS NO PAIN AT SITE. PT EDUCATED ABOUT NEED TO REPORT ANY BURNING/PAIN AT IV SITE, STATES VERBAL UNDERSTANDING. VANCO INFUSING AT THIS TIME DIRECTED. PT REPORTS PAIN 4/10, REQUESTS PRN OXY, GIVEN (SEE EMAR). KERLEX/JEFFREY FALLING DOWN LEG AT THIS TIME, REWRAPPED. CALL LIGHT WITHIN REACH, NO FURTHER NEEDS AT THIS TIME.
--- NOTE | 2022-09-09 01:03 | NUR ---
PT RESTING W/EYES CLOSED. RESPIRATIONS ARE EVEN AND UNLABORED, NO SIGNS OF DISTRESS. CALL LIGHT WITHIN REACH.
--- NOTE | 2022-09-09 01:21 | NUR ---
IN PT ROOM D/T BEEPING PUMP. PT IV SITE WNL, NOW SALINE LOCKED. BEDSIDE URINAL EMPTIED AND RECORDED ON BOARD. PT IS RESTING W/EYES CLOSED, AWAKENS TO VOICE. PT APPEARS COMFORTABLE AT THIS TIME. CALL LIGHT WITHIN REACH, NO FURTHER NEEDS.
--- NOTE | 2022-09-09 02:16 | NUR ---
PT RESTING W/EYES CLOSED. RESPIRATIONS ARE EVEN AND UNLABORED, NO SIGNS OF DISTRESS. CALL LIGHT WITHIN REACH.
--- NOTE | 2022-09-09 03:40 | NUR ---
IN PT ROOM TO EMPTY URINAL PER ANSWERED CALL LIGHT, RECORDED OUTPUT. NO ACUTE CHANGES FROM PREVIOUS ASSESSMENT. PT REPORTS 4/10 HEADACHE PAIN, PRN TYLENOL GIVEN. PT REPORTS NO NAUSEA, DIZZINESS, SOB, OR N/T AT THIS TIME. KERLEX AND JEFFREY WRAP REWRAPPED, ALLEVYNS IN PLACE, NO SIGNS OF DRAINAGE (C/D/I). IV SITE WNL. ICE WATER PROVIDED. CALL LIGHT WITHIN RECH, NO FURTHER NEEDS AT THIS TIME.
--- NOTE | 2022-09-09 06:03 | NUR ---
IN PT ROOM FOR IV ABX INFUSION START. PT REPORTS HEADACHE PAIN 2/10 AT THIS TIME. PT DECLINES NEED FOR PRN OXY, ICE PACK, COLD RAG AT THIS TIME. IV SITE WNL, PT REPORTS SLIGHT BURN W/INITIAL FLUSH, READJUSTED AND PT REPORTS NO PAIN W/FLUSH. VSS. CALL LIGHT WITHIN REACH, NO FURTHER NEEDS AT THIS TIME.
--- NOTE | 2022-09-09 09:15 | NUR ---
REPORT RECEIVED FROM NIGHT RN AND PT CARE RESUMED. PT IS ALERT AND ORIENTED TO ALL. RIGHT THIGH WOUND DRESSING INTACT WITH MILD DRAINAGE ON FOAM. KERLEX AND JEFFREY WRAP REPLACED THEY HAD BECOME DISPLACED. ASSESSMENT COMPLETED. PT. AMBULATED 1 LAP AROUND UNIT WITH SBA AND FWW AND TOLERATED WELL. IV SITE HAS NOT REDDNESS OR S/SX OF INFILTRATION. PT. REPORTS PAIN THOUGH AND DISCUSSED STARTING NEW IV BEFORE IV ABX. LEFT RESTING WITH STUDENT RN LEIGHA THE ROOM
--- NOTE | 2022-09-09 10:40 | NUR ---
PT INITIATED TAKING A SHORT WALK FROM HIS ROOM THIS MORNING. HE AMBULATED WITH HIS 4WW APPROX 20 YARDS IN THE MS HALLWAY THEN BACK TO HIS ROOM WITH ONE PERSON STAND BY ASSIST. HE THEN RESTED IN HIS RECLINER WITH FEET ELEVATED.
--- NOTE | 2022-09-09 10:44 | NUR ---
WENT IN TO DO HIS I&O EMPTIED OUT HIS URINAL. GOT HIM SOME FRESH CUP OF ICE WATER. ASKED HIM IF HE WOULD LIKE TO BRUSH HIS TEETH AND WASH HIS FACE AND HE SAID NOT RIGHT NOW.
--- NOTE | 2022-09-09 11:48 | NUR ---
DID 15 MINUTE CHECK AFTER STARTING VANCO. ABX IS INFUSING WELL AND PT STATED HE HAS 0/10 PAIN AT INFUSION SITE. IV SITE IS INTACT WITH NO INFILTRATION NOTED.
--- NOTE | 2022-09-09 14:52 | NUR ---
RIGHT THIGH DRESSING CHANGED PER ORDERS AND PT TOLERATED WELL. MEDS ADMIN AND ASSESSMENT COMPLETED. CALL LIGHT IN REACH.
--- NOTE | 2022-09-09 16:45 | NUR ---
Spoke with Dr. Jackson and pt may dc on Monday. Pt would like wound care at the wound clinic. Orders completed and delivered to Fatoumata at the clinic. Pt scheduled for appro 0830 on Monday. They will work out a schedule with the pt. 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
--- NOTE | 2022-09-09 19:15 | NUR ---
RECEIVED REPORT FROM MICA WISE. PT RESTING IN BED W/FAMILY IN ROOM AT THIS TIME. PT REPORTS MILD HEADACHE/RT LEG PAIN AT 2/10 AND REQUESTS PRN TYLENOL AT THIS TIME, GIVEN (SEE EMAR). IV SITE WNL AND SALINE LOCKED. CALL LIGHT WITHIN REACH, PT REPORTS NO FURTHER NEEDS AT THIS TIME.
--- NOTE | 2022-09-09 20:40 | NUR ---
IN ROOM FOR INSULIN ADMIN AND ASSESSMENT. LUNGS ARE CLEAR THROUGHOUT, PT ON RA W/O2 SATS >90%, OCCASIONAL NONPRODUCTIVE COUGH, PRN TESSALON GIVEN (SEE EMAR). PT REPORTS PAIN 2/10 AT THIS TIME, NO NAUSEA, N/T, DIZZINESS, OR SOB. PULSES PRESENT THROUGHOUT, ACTIVE BOWEL TONES X4. DRESSING HAS UPLIFTED, NEW DRESSING CHANGE PERFORMED PER WOUND CHANGE ORDER, SECURED WITH KEFLEX AND JEFFREY WRAP, PT TOLERATED WELL. PT IS A&O X4. IV SITE WNL. CALL LIGHT WITHIN REACH, WATER PROVIDED, NO FURTHER NEEDS AT THIS TIME.
--- NOTE | 2022-09-09 22:00 | NUR ---
IN PT ROOM FOR ABX ADMIN, IV SITE WNL. URINAL EMPTIED, OUTPUT RECORDED. JEFFREY WRAP ADJUSTED D/T FELL DOWN LEG. CALL LIGHT WITHIN REACH, NO FURTHER NEEDS AT THIS TIME.
--- NOTE | 2022-09-09 23:09 | NUR ---
IN PT ROOM FOR HANGING OF VANCO ABX. IV SITE IS WNL, BRISK BLOOD RETURN AND FLUSHES W/EASE. INFUSION STARTED (SEE EMAR). PT EDUCATED ABOUT SIGNS OF INFILTRATION SUCH REDNESS, BURNING, PAIN, PT VERBALIZED UNDERSTANDING. MELATONIN GIVEN PER PT REQUEST FOR SLEEP AID (SEE EMAR). PT STATES PAIN 2/10 AT THIS TIME, PRN OXY GIVEN (SEE EMAR). CALL LIGHT WITHIN REACH, NO FURTHER NEEDS AT THIS TIME.
--- NOTE | 2022-09-10 00:03 | NUR ---
PT RESTING W/EYES CLOSED. RESPIRATIONS ARE EVEN AND UNLABORED, NO SIGNS OF DISTRESS. CALL LIGHT WITHIN REACH. ABX INFUSING DIRECTED, IV SITE WNL AT THIS TIME.
--- NOTE | 2022-09-10 00:40 | NUR ---
IN PT ROOM TO SALINE LOCK AFTER ABX INFUSION, IV SITE WNL. PT REPORTS NO PAIN AT THIS TIME. PT NOW RESTING W/EYES CLOSED. CALL LIGHT WITHIN REACH, STATES NO FURTHER NEEDS AT THIS TIME.
--- NOTE | 2022-09-10 02:13 | NUR ---
PT RESTING ON BACK W/EYES CLOSED. RESPIRATIONS ARE EVEN AND UNLABORED, NO SIGNS OF DISTRESS. CALL LIGHT WITHIN REACH.
--- NOTE | 2022-09-10 04:27 | NUR ---
VSS, I&O'S ALSO CHARTED. FRESH WATER PROVIDED. PRIMARY RN SOULEYMANE REMAINS IN ROOM FOR PRN MEDICATION ADMINISTRATION. NO ADDITIONAL NEEDS, CALL LIGHT IN REACH.
--- NOTE | 2022-09-10 04:47 | NUR ---
IN PT ROOM D/T ANSWERED CALL LIGHT FOR ASSISTANCE W/DRESSING. ALLEVYNS ARE INTACT W/SMALL AMOUNT OF YELLOWISH DRAINAGE AT CENTER OF DRESSING. KERLEX AND JEFFREY WRAP REWRAPPED AROUND SITE. NO ACUTE CHANGES FROM PREVIOUS ASSESSMENT. VSS. PT REPORTS NO NAUSEA, DIZZINESS, SOB, OR N/T. PT REPORTS INNER THIGH PAIN AT 4/10 AT THIS TIME, PRN OXY GIVEN AT PT REQUEST (SEE EMAR). PT REPORTS MILD ITCHING ON LOWER BELLY W/SMALL AMOUNT OF REDNESS. PT REPORTS INCREASE OF COUGHING, PRN MUCINEX GIVEN (SEE EMAR). CALL LIGHT WITHIN REACH, NO FURTHER NEEDS AT THIS TIME. FRESH WATER PROVIDED.
--- NOTE | 2022-09-10 08:30 | NUR ---
REPORT RECEIVED FROM NIGHT RN AND PT CARE RESUMED. PT. IS DROWSY BUT AWAKENS EASILY TO VOICE. RATES PAIN1/10 IN RIGHT THIGH. ORIENTED TO ALL. ASSESSMENT COMPLETED. JEFFREY WRAP ON RIGHT THIGH REAPPLIED. FOAM DRESSINGS BELOW WRAP HAVE SCANT YELLOW DRAINAGE AND ARE INTACT. DISCUSSED AMBULATING AND POC. LEFT RESTING WITH CALL LIGHT IN REACH.
--- NOTE | 2022-09-10 10:36 | NUR ---
patient went on a walk down the workman, he tolerated it well. Patient said his leg was sore when we got back to the room. call light within reach, no further needs at this time.
--- NOTE | 2022-09-10 11:38 | NUR ---
MEDS ADMINISTERED. PT. STATES HE IS CONCERNED THAT HIS GRANDFATHER WAS FOUND UNRESPONSIVE AND ON HIS WAY TO THE ER. HE ASKS IF HE CAN VISIT HIM THERE. PT. INSTRUCTED TO CONTACT GRANDFATHER'S CAREGIVE. RIGHT THIGH REWRAPPED WITH JEFFREY WRAP. DENIES FURTHER NEEDS. LEFT RESTING WITH CALL LIGHT IN REACH.
--- NOTE | 2022-09-10 12:59 | NUR ---
PT CALL LIGHT ON. IV PUMP ALARMING, INFUSION COMPLETE. IV FLUSHED AND SALINE LOCKED PER PROTCOL, ALCOHOL CAP APPLIED. PT DENEIS ADDITIONAL REQUESTS OR COMPLAINTS. CALL LIGHT WITHIN REACH. BED RAILS UP. PTS PRIMARY NURSE UPDATED.
--- NOTE | 2022-09-10 13:16 | NUR ---
PT. ASSESSMENT COMPLETE. PT. ENCOURAGED TO AMBULATE AGAIN. STATES HE NEEDS A NAP FIRST. IV SALINE LOCKED. CALL LIGHT IN REACH.
--- NOTE | 2022-09-10 15:07 | NUR ---
ROUNDING ON PT. HE IS RESTING IN BED WITH LIGHTS OFF. HE DENIES PAIN. STATES HE IS WORRIED ABOUT HIS GRANDFATHER. PT. COMFORTED. URINAL EMPTIED AND PT. LEFT RESTING WITH CALL LIGHT IN REACH.
--- NOTE | 2022-09-10 16:40 | NUR ---
PT. C/O DRY COUGH. ADMIN PRN MED. DENIES FURTHER NEEDS. CALL LIGHT IN REACH.
--- NOTE | 2022-09-10 17:39 | NUR ---
RIGHT THIGH WOUND DRESSING MODERATELY SATURATED WITH YELLOW DRAINAGE. REDRESSED. WOUND BED 100% COVERED IN SLOUGH TISSUE. HORTENSIA WOUND RED WITH EPITHELIIZING BORDER. THIGH IS REDDENED AND INDURATED. PT. TOLERATED WELL. DISCUSSED VISITING GRANDFATHER ON COMFORT CARE IN RM 122. TRIPLE VALVE MECHANIC CALLED FOR PERMISSION.
--- NOTE | 2022-09-10 19:10 | NUR ---
RECEIVED REPORT FROM MICA WISE. PT IS IN ROOM W/ AT THIS TIME. CALL LIGHT WITHIN REACH, NO NEEDS AT THIS TIME.
--- NOTE | 2022-09-10 21:05 | NUR ---
IN PT ROOM FOR INSULIN ADMIN, PT TOLERATED WELL. 3 UNITS GIVEN FOR BS OF 168. ASSESSMENT PERFORMED. PT STATES PAIN 2/10 AT THIS TIME AND TOLERABLE IN RT THIGH. DRESSING IS C/D/I, SECURED W/KERLEX AND JEFFREY WRAP. BACKSIDE IS INTACT, NO SIGNS OF SKIN BREAKDOWN AT THIS TIME. LUNG SOUNDS ARE CLEAR THROUGHOUT, PT HAS INFREQUENT OCCASIONAL DRY COUGH. PULSES PRESENT THROUGHOUT. BOWEL TONES ACTIVE X4. PT REPORTS NO NAUSEA, DIZZINESS, N/T, SOB AT THIS TIME. IV SITE WNL, NO REDNESS/BURNING/PAIN NOTED BY PT, FLUSHES W/EASE. AT BEDSIDE, ALL QUESTIONS ANSWERED AT THIS TIME. PT IS A&O X4. CALL LIGHT WITHIN REACH, NO FURTHER NEEDS AT THIS TIME.
--- NOTE | 2022-09-10 23:10 | NUR ---
IN PT ROOM FOR ADMIN OF ABX. IV SITE WNL, FLUSHES W/EASE, PT REPORTS NO PAIN OR BURNING AT IV SITE W/FLUSH. PT SLEEPING IN RECLINER AT BEDSIDE. PT REQUEST PRN COUGH MEDICATION, MUCINEX GIVEN (SEE EMAR). PT STATES PAIN 3/10 AT THIS TIME, REQUESTS OXY, GIVEN (SEE EMAR). PT REQUESTS MED FOR SLEEP AID, PRN MELATONIN GIVEN (SEE EMAR). DRESSING REMAINS C/D/I AT THIS TIME. CALL LIGHT WITHIN REACH, NO FURTHER NEEDS AT THIS TIME.
--- NOTE | 2022-09-11 03:10 | NUR ---
PT RESTING W/EYES CLOSED. RESPIRATIONS ARE EVEN AND UNLABORED, NO SIGNS OF DISTRESS. SLEEPING AT BEDSIDE IN RECLINER. CALL LIGHT WITHIN REACH.
--- NOTE | 2022-09-11 04:05 | NUR ---
IN PT ROOM D/T ANSWERED CALL LIGHT FOR WARM BLANKET. PT REPORTS NO PAIN, NAUSEA, N/T, DIZZINESS, SOB AT THIS TIME. PT CONTINUES TO HAVE OCCASIONAL, DRY COUGH. DRESSING IS C/D/I AT THIS TIME SECURED W/KERLEX AND JEFFREY WRAP. IV SITE WNL AND SALINE LOCKED. NO ACUTE CHANGES FROM PREVIOUS ASSESSMENT. CALL LIGHT WITHIN REACH, NO FURTHER NEEDS AT THIS TIME.
--- NOTE | 2022-09-11 06:07 | NUR ---
vss and i&o's complete. iv abx infusing as directed, see emar. primary rn vick remains in room, no additional needs or concerns verbalized. call light in reach.
--- NOTE | 2022-09-11 06:09 | NUR ---
IN PT ROOM FOR ADMIN OF ABX AND SOUMYA ASSET PROTECTION OFFICER IN ROOM FOR VS AND I/O'S. PT RESTING W/EYES CLOSED BUT AWAKENS TO VOICE. PT REPORTS NO NEEDS AT THIS TIME. CALL LIGHT WITHIN REACH.
--- NOTE | 2022-09-11 08:13 | NUR ---
PT RESTING IN BED. PT IS AWAKE. WHITE BOARD UPDATED. CALL LIGHT IN REACH. URINAL EMPTIED. NO FURTHER NEEDS AT THIS TIME.
--- NOTE | 2022-09-11 09:10 | NUR ---
TYLENOL 650MG PO ADMIN FOR REPORTS OF 5/10 RIGHT UPPER LEG PAIN.
[2022-09-11] MEDS ORDERED: CEFDINIR300 MG PO (10:05)
[2022-09-11] MEDS ORDERED: DOXYCYCLINE HY100 M3 PO (10:06)
[2022-09-11] MEDS ORDERED: MUCINEX600 MG PO (10:12)
[2022-09-11] MEDS ORDERED: INSULIN GL100 UNIT/1 SUB-Q (10:15)
[2022-09-11] MEDS ORDERED: HUMALOG100 UNITS/ SUB-Q (10:16)
[2022-09-11] MEDS ORDERED: BLOOD GLUCOSE1 EAC5 MISC (10:18)
--- NOTE | 2022-09-11 14:52 | NUR ---
Diabetic education done by this RN with patient throughout day. Patient able to demonstrate proper self administration of insulin. Patient able to verbalize his understanding of his insulin sliding scale and reports he feels comfortable going home with insulin. arrived to pick patient up for discharge and noted to be upset with discharge plan to leave with s/s insulin as she reports she feels patient was not properly educated on diabetes and sliding scale. Patient reports a nurse informatics educator did come to see him and discussed diet/insulin use but he thought the doctor was instead sending him home with oral diabetic medication instead. this RN provided additional education on insulin sliding scale use as well as diabetes. Written sliding scale provided to patient and at this time. Per , she reports there's nothing I can do regarding her frusteration, she feels staff was "rude to her the other day". This RN explained to that I was not here the other day and I want to ensure she and her have all their concerns addressed before they leave the hospital. Called Dr. Jackson to let him know patient thought he was discharging with diabetic oral medications rather than insulin. Per Dr. Jackson, no changes to be made to discharge medications at this time as he feels insulin is indicated for optimal patient care. Let patient and know Dr. Jackson wants to keep ordered insulin upon discharge. and report they have no further questions at this time and understand their discharge information and plan of care moving forward.
== END 2022-09-11 14:45 | disposition home or self-care (01) | DRG 872 ==
LOC: ED 06:40 → MS 10:55 → CCU 10:55 → MS 09-06 06:08
PROVIDERS: ADMIT Internal Medicine; ATTEND Family Medicine
DX: A41.01 Sepsis due to Methicillin susceptible Staphylococcus aureus (principal); L03.115 Cellulitis of right lower limb; N17.9 Acute kidney failure, unspecified; E87.1 Hypo-osmolality and hyponatremia; Z20.822 Contact with and (suspected) exposure to COVID-19; E11.65 Type 2 diabetes mellitus with hyperglycemia; L30.9 Dermatitis, unspecified; T39.395A Adverse effect of other nonsteroidal anti-inflammatory drugs [NSAID], initial encounter; E87.6 Hypokalemia; N14.11 Contrast-induced nephropathy; T50.8X5A Adverse effect of diagnostic agents, initial encounter; B97.4 Respiratory syncytial virus as the cause of diseases classified elsewhere; Z88.5 Allergy status to narcotic agent; Z79.4 Long term (current) use of insulin; Z79.899 Other long term (current) drug therapy
CPT/HCPCS: 36415; 71045; 73701; 76882; 80048; 80053; 80202; 81001; 83036; 83605; 83735; 85007; 85025; 85610; 85730; 87040; 87502; 93005; 93010; 93971; 94760; A9270; C9803; J0690; J0692; J1650; J1815; J1885; J2405; J3370; J3475; J7030; J7060; J7121; Q9967; U0003

== ENCOUNTER 2022-09-21 15:12 | Inpatient (IN) | payer BC ==
[~2022-09-21] VITALS: Ht 177.8 cm; Wt 103.0 kg
[~2022-09-21 15:12] MED LIST: BLOOD GLUCOSE1 EAC5 MISC; CEFDINIR300 MG PO; DOXYCYCLINE HY100 M3 PO; HUMALOG100 UNITS/ SUB-Q; INSULIN GL100 UNIT/1 SUB-Q; MUCINEX600 MG PO
--- NOTE | 2022-09-21 15:50 | NUR ---
PATIENT AMBULATES INTO FACILITY WITH SPOUSE TO BE DIRECT ADMITTED FROM DR. POWELL [facility] WITH SPOUSE PRESENT. ASSESSMENT COMPLETED. IV STARTED X1 ATTEMPT. BLOOD PULLED FROM IV AND SPECIMEN SENT TO LAB. PHOTOS OF WOUND OBTAINED.
[2022-09-21] MEDS ORDERED: CEFDINIR300 MG PO (16:43)
[2022-09-21] MEDS ORDERED: DOXYCYCLINE HY100 MG PO (16:43)
--- NOTE | 2022-09-21 17:25 | NUR ---
medications reconciled
--- NOTE | 2022-09-21 17:51 | NUR ---
DRY GAUZE AND KERLIX TO RIGHT THIGH PER VERBAL ORDERS DR. POWELL.
--- NOTE | 2022-09-21 19:34 | NUR ---
Received bedside report from offgoing shift, hourly rounding initiated.
--- NOTE | 2022-09-21 20:33 | NUR ---
In pt room for medication administration. Pt resting on back, states the dressing on leg came off, replaced bandage as previously wrapped as there were no orders for wound care, Pt given medications as scheduled, call light in reach, no complaint of pain
--- NOTE | 2022-09-22 00:12 | NUR ---
In pt room for medication administrations - Pt given scheduled Tylenol, no complaint of pain, call light in reach.
--- NOTE | 2022-09-22 00:14 | NUR ---
Pt made NPO, states understanding of necessity, no complaint. Call light in reach.
--- NOTE | 2022-09-22 02:15 | NUR ---
IN pt room for rounding, VS, and I&O's. Pt resting on back, eyes closed, no complaint of pain or discomfort. Pt VS stable, remains NPO and call light is in reach.
--- NOTE | 2022-09-22 04:17 | NUR ---
In pt room for rounding. Pt resting on back, eyes closed, breathing is even and unlabored. Pt has no indication of pain or discomfort, call light is in reach.
--- NOTE | 2022-09-22 06:50 | NUR ---
IN pt room for rounding, medication adminsitration, dressing change. Pt has no complaint of pain, remains NPO, Surgery checklist started, call light in reach
--- NOTE | 2022-09-22 09:20 | NUR ---
Entered patient's room where he was resting comfortably in bed. His was visiting in the room with him. Student nurse Ghazal and I gave patient his CHG presurgical bath with the help of patient and his without any complications.
--- NOTE | 2022-09-22 09:30 | NUR ---
REPORT RECEIVED FROM NIGHT RN AND PT. CARE RESUMED PT. IS ALERT AND ORIENTED TO ALL. AT BEDSIDE. PT. REPORTS MILD STINGING AT RIGHT THIGH WOUND SITE BUT REFUSES PAIN MEDS. WOUND DRESSED WITH GAUZE WITH SMALL AMOUNT OF YELLOW DRAINAGE. LEG IS INDURATED, WARM AND RED. ASSESSMENT COMPLETED. MEDS ADMIN. PRE-OP CHECK LIST COMPLETED. LEFT RESTING WITH CALL LIGHT IN REACH.
--- NOTE | 2022-09-22 14:21 | NUR ---
PT TAKEN TO OR FOR SURGERY. WILL FOLLOW
--- NOTE | 2022-09-22 15:30 | NUR ---
PT. ARRIVED FROM PACU AND REPORT GIVEN AT BEDSIDE. PT. C/O 5/10 PAIN AT SURGICAL SITE. PRN BRUSH FILLER HAND. PT. TOLERATING FLUIDS AND JELLO. AT BEDSIDE. ASSESSMENT COMPLETED. WOUND VAC SET TO 120 SUCTION AND DRESSING INTACT WITHOUT LEAKS. CPOX IN PLACE. WILL CONTINUE TO MONITOR.
--- NOTE | 2022-09-22 15:39 | HP ---
[facility] [address], [place] [address] Signed ADMISSION DATE: 09/21/2022 REASON FOR ADMISSION: Necrotizing soft tissue infection, right medial thigh; longstanding diabetes, recent cellulitis with progressive skin necrosis. INDICATION: This 32-year-old white man was hospitalized between September 01 and September 11 at [facility]. He is initially evaluated by Dr. Bridgett Dolan. All three hospitalists participated in his care ultimately. He was admitted with pain in the proximal right lower extremity in the medial aspect five days prior to his recent admission. He does have chronic eczema of the lower extremity in the region of the bates. He was identified as having significant cellulitis of the proximal thigh. He additionally was considered to have a sinus infection and uvula infection. His primary physician is AMY Ely. He is also seen by Dr Gudino in the same office. The patient does have diabetes and hypertension. A CT scan had been performed showing soft tissue swelling and concern made for possible DVT. He was hospitalized initially in the intensive care unit for sepsis and severe cellulitis. He did not undergo surgical consultation while hospitalized, but then was referred to the outpatient wound care team for various dressings were applied to the area showing necrotic skin. I was advised of his problem and I saw him in the office today regarding his persistent swelling of the medial thigh as well as necrotic skin. Office evaluation showed him to have dermis (eschar) in a serpiginous configuration in the medial aspect of the right thigh as well as edema and swelling of the erythematous cellulitic soft tissue nearby. He is admitted at this time for further evaluation and care to likely undergo debridement tomorrow. PAST MEDICAL HISTORY: Notable for diabetes mellitus. HOME MEDICATIONS: Recently have included: 1. Cefdinir 300 mg p.o. b.i.d. 2. Doxycycline 100 mg p.o. b.i.d. 3. Insulin glargine 40 units subcu with dinner. 4. Human Humalog lispro insulin as needed by sliding scale. REVIEW OF SYSTEMS: Electronically Signed By: MICHAEL POWELL MD 09/22/22 1539 PATIENT NAME: PASQUALE MCDANIEL HISTORY AND PHYSICAL DATE OF : 88 REPORT #: [id number] PHYSICIAN: MICHAEL POWELL MD PCP: LUCA GUDINO MD REPORT IS CONFIDENTIAL AND NOT TO BE RELEASED WITHOUT AUTHORIZATION [address] [address] Signed He denies any fever or chills at this time. He is accompanied by his who affirms this. He has had a fair amount of serous drainage from the open wound in the medial thigh. He has had no fever or chills. SOCIAL HISTORY: He is . He does work, though he has been off work since the September 01 as noted. PHYSICAL EXAMINATION: GENERAL: A pleasant white man, who does not look systemically toxic at this time. VITAL SIGNS: Temperature is 97.4, pulse 92, blood pressure 134/84. NECK: Normal. CHEST: Clear. HEART: Regular without murmur. ABDOMEN: Soft and nontender. It is obese. There is no sign of cellulitic change of the abdomen. EXTREMITIES: Lower extremities are examined showing an erythematous, edematous medial right thigh with a serpiginous area of yellow eschar necrotic tissue. There is opening near the eschar allowing for drainage of serous fluid. The right bates area has chronic dermatitis from presumed eczema. There is no evidence clinically of deep venous thrombosis. Left side is normal. A 2-3 cm nodule is noted in the right medial calf with cord-like extension proximally suggestive of resolving thrombophlebitis... there is little tenderness and no erythema there. LABORATORY STUDIES: At admission today show white count of 7.2, hematocrit 36, platelets 650,000. Chem profile shows a creatinine of 1.14. Electrolytes are normal. Calcium is 9.4. Serology; negative for coronavirus or influenza. ASSESSMENT: He was treated with rather significant and severe cellulitis of the right proximal thigh, which likely had some area of undrained purulence at one time, now only serous drainage, but definitely with persistent necrotic tissue including skin, subcutaneous tissue, and so on. I have admitted him to the hospital for antibiotic administration, anticipating radical debridement tomorrow. Sparing of viable skin would be beneficial. He may require wide enough resection of the tissue that he will have a sizable soft tissue defect of the medial right thigh. Likely wound management will include a wound VAC device and possibly ultimately rotational flap for closure or even skin grafting depending on the situation. He will absolutely not improve in an outpatient setting and requires hospitalization and more aggressive care at this time. Electronically Signed By: MICHAEL POWELL MD 09/22/22 1539 PATIENT NAME: PASQUALE MCDANIEL HISTORY AND PHYSICAL DATE OF : [birth year] REPORT #: [id number] PHYSICIAN: MICHAEL POWELL MD PCP: LUCA GUDINO MD REPORT IS CONFIDENTIAL AND NOT TO BE RELEASED WITHOUT AUTHORIZATION [address] [address] Signed PLAN : ADMIT for broad spectrum antibiotics, iv fluid administration and preparation for operative debridement tomorrow. MD RUSSELL Monson/MODL /[id number] cc: MD James Madden, MD Moni Corrales, MD Christin Vo, PA-C Copies: BRIDGETT DOLAN MD,MONI VO,CHRISTIN PAC ~ Electronically Signed By: MICHAEL POWELL MD 09/22/22 1539 PATIENT NAME: PASQUALE MCDANIEL HISTORY AND PHYSICAL DATE OF : [birth year] REPORT #: [id number] PHYSICIAN: MICHAEL POWELL MD PCP: LUCA GUDINO MD REPORT IS CONFIDENTIAL AND NOT TO BE RELEASED WITHOUT AUTHORIZATION
--- NOTE | 2022-09-22 15:53 | NUR ---
09/22/22 Scott3 Lorena Le 1425 PT ARRIVED TO PACU WITH ORAL AIRWAY AND ON 10L VIA MASK, RESP EVEN AND UNLABORED. JAW THRUST USED OFF AND ON TO MAINTAIN AIRWAY. 1429 PT MOVING IN BED AND OPENS HIS EYES TO TACTILE STIMULI, ORAL AIRWAY REMOVED. RN REORIENTING PT TO PACU. PT HR INCREASES AND PT REPORTS PAIN. PT GRAMCING.
--- NOTE | 2022-09-22 17:10 | NUR ---
Spoke with pt and his .Pt has returned for I&D of chronic wound. Pt was scheduled for 3 x a week dressing changes, but was returning daily due to excessive drainage. I&D was completed and pt has an in house wound vac in place at this time. Pt cont. to live at home with his . They have multiple steps to get into their home, but was in all is ground level. Pt denies issues getting up steps and they have rails. Pt has a cane. Per pt's FMLA ended last weekend and [facility]. Pt plans on dc to home when cleared medically. Emailed Silvia Nance from [employer] [facility] that contacts with their company. If not, will contact [facility] for a wound vac.
--- NOTE | 2022-09-22 17:40 | NUR ---
ASSESSMENT COMPLETED. WOUND VAC INTACT AND DRAINING A SCANT AMOUNT OF SEROSAGUINOUS FLUID. PT. RATES PAIN 3/10 BUT REFUSES PAIN MEDS AT THIS TIME. VITALS STABLE. PT. EATING DINNER WITH AT BEDSIDE. WILL CONTINUE TO MONITOR.
--- NOTE | 2022-09-22 18:41 | NUR ---
PT. ATE 90% OF DINNER REPORTS TOLERABLE PAIN IN RIGHT THIGH SURGICAL SITE. WOUND VAC DRESSING INTACT AND DRAINING SCANT AMOUNT OF SS FLUID. SURG SITE REMAINS UNCHANGED. VITALS STABLE. PT. LEFT RESTING WITH CALL LIGHT IN REACH.
--- NOTE | 2022-09-23 02:00 | NUR ---
PT LYING IN BED RESTING QUIETLY. RESP EVEN ET UNLABORED. ABLE TO MAKE NEEDS KNOWN. PT HAS WOUND VAC TO RIGHT UPPER THIGH SEAL TIGHT WITH SMALL AMOUNT OF SEROSANGUINOUS FLUID INN CANNISTER. PT HAS NO COMPLAINT OF PAIN OR DISTRESS AT THIS TIME. REMAINS AT BEDSIDE.
--- NOTE | 2022-09-23 07:45 | NUR ---
MAT BEDSIDE WITH BILLIE HUTCHISON, STUDENT NURSE INSTRUCTOR, PT WAS WILLING TO AMBULATE WITH CANE TO THE SECOND NURSES' STATION FROM HIS ROOM, HE DID THIS WITHOUT DIFFICULTY, HE RATED HIS PAIN AT 3/10. PT THEN RETURNED TO HIS ROOM TO HIS RECLINER, CALL LIGHT WITHIN REACH. H/T ASSESMENT DONE
--- NOTE | 2022-09-23 09:00 | NUR ---
REPORT RECEIVED FROM NIGHT RN AND PT. CARE RESUMED. PT. IS ALERT AND ORIENTED TO ALL. AMBULATED 2 LAPS AROUND THE UNIT WITH SBA AND TOLERATED WELL. WOUND VAC DRESSING INTACT WITHOUT LEAKS AND DRAINING SS FLUID. AREA AROUND RIGHT THIGH WOUND IS INDURATED AND RED. PT. REPORTS PAIN IS TOLERABLE AT THIS TIME AND 10. MEDS ADMIN AND PT. LEFT RESTING WITH CALL LIGHT IN REACH.
--- NOTE | 2022-09-23 09:47 | NUR ---
CALLED [employer] AND ASKED THEM TO ADD GLUCERNA TO LUNCH MEAL- OK'D PER BILLIE NINO. NOTIFIED BILLIE HUTCHISON, STUDENT SERVICES ACCOUNT MANAGER.
--- NOTE | 2022-09-23 10:18 | NUR ---
SPOKE TO DILLON, CONVICT GUARD, WHO CONFIRMED THAT SHE IS SCHEDULED TO HAVE A DIET CONSULTATION WITH PT. IT WAS NOTED THAT PT HAS HAD 29LB WEIGHT LOSS SINCE HIS FIRST ADMISSION ON 09/01/22. PT IS EAGER TO DISCUSS DIET AND DIABETIC EDUCATION TO PROMOTE WOUND HEALING. DILLON WAS WILLING TO COME AND PROVIDE EDUCTION TO PT BEFORE NOON TODAY. AT BEDSIDE WITH PT TO DISCUSS CONSULT AND TO DO VITALS AND PAIN ASSESSMENT. CALL LIGHT WITHIN REACH AND PT RESTING COMFORTABLY.
--- NOTE | 2022-09-23 11:15 | NUR ---
PT. C/O 10/28 LEG PAIN AND REQUESTS PAIN MEDS. PRN SPECIAL PROCEDURE TECHNOLOGIST. PT. HAD QUESTIONS ABOUT WOUND VAC OUTPATIENT CARE. ALL QUESTIONS ANSWERED. LEFT RESTING WITH CALL LIGHT IN REACH.
--- NOTE | 2022-09-23 11:21 | NUR ---
ROUNDING ON PT. HE C/O 10/28 "STINGING" PAIN AT RIGHT THIGH WOUND SITE. ADMIN PRN PAIN MED. PT. DENIES FURTHER NEEDS. CALL LIGHT IN REACH.
--- NOTE | 2022-09-23 16:09 | NUR ---
PATIENT AND I DID ONE LAP AROUND MED SURG. PATIENT IS NOW BACK IN BED. BEEN UP IN HIS CHAIR FOR MOST OF DAY. SO HE DECIDED TO EAT HIS DINNER IN BED.
--- NOTE | 2022-09-23 16:28 | NUR ---
Wound vac auth received from [employer]. To go bag given to pt and nurses updated bag is in the room. Dr. De La Rosa notified by text auth received. Discussed with pt, supplies and vac in bag. Understanding stated. Also discussed with pt when he is finished with the vac, he needs to call the company and ask for a box and address sticker to return vac. Do not return dirty vac to the hospital. Copy's of signed papers for wound vac given to pt.
--- NOTE | 2022-09-24 01:37 | NUR ---
PT LYING IN BED RESTING QUIETLY. RESP EVEN ET UNLABORED. ABLE TO MAKE NEEDS KNOWN. PT C/O PAIN TO RIGHT LEG GIVEN PRN PAIN MED PT STATES MED WAS EFFECTIVE. PT HAS WOUND VAC TO RIGHT UPPER THIGH WOUND VAC PATENT AND INTACT DRAINING SEROSANGUINEOUS FLUID IN CANNISTER. PT AMBULATORY WITH 1 PERSON ASSIST. NO ACUTE DISTRESS NOTED AT THIS TIME. WILL CONTINUE TO MONITOR.
--- NOTE | 2022-09-24 08:16 | NUR ---
THIS RN TO ROOM TO ASSIST WITH MORNING CARES. WOUND LÁZARO NOTED TO BE UNPLUGGED FROM TRANSITOR BOX AT CENTER OF THE ELECTRAL CORD, AND THEREFOR NOT OPERATING, NO SUCTION IS APPLIED. PT UP WITH STAND BY ASSIST TO CHAIR, AND SUCTION REAPPLIED TO WOUND VAC AT 120MMHG. PT STATES "I HAVE NO IDEA WHY OR FOR HOW LONG THAT HASN'T BEEN WORKING." PT REPORTS 4/10 PIN IN RIGHT UPPER THIGH AT WOUND SITE WITH ACTIVITY AND REAPPLICATION OF WOUND VAC SUCTION, SEE MAR FOR MEDICATION GIVEN. MODERATE AMOUNTS OF SEROUSANGUINOUS DRAINAGE NOTED IN CANISTER. FOAM NOW NOTED TO BE DEPRESSED AND FIRM TO TOUCH WITH SUCTION IN PLACE. NO LEAK NOTED. MORNING CARES DONE. PT WASHES FACE. LINENS CHANGED. BREAKFAST DELIVERED. WARM BLANKET PROVIDED. ICE WATER REFILLED. NO ADDITIONAL REQUESTS OR COMPLAINTS. CALL LIGHT JAN HANNA.
--- NOTE | 2022-09-24 08:29 | NUR ---
PT CALL LIGHT ON. PT REQUESTS ASSISTANCE UP TO THE RESTROOM. 1 PERSON ASSIST FOR LINE AND TUBE MANAGEMENT UP TO RESTROOM. PT PASSES LARGE AMOUNTS OF GAS AND HAS MODERATE SIZED SOFT BROWN BOWEL MOVEMENT. PT PERFORMS SELF HORTENSIA CARE. 1 PERSON ASSIST BACK TO CHAIR. WOUND VAC REMAINS OPPORATIONAL WITH SUCTION IN PLACE. PT DENIES ADDITIONAL REQUESTS OR COMPLAINTS. CALL LIGHT WITHIN REACH.
--- NOTE | 2022-09-24 08:45 | NUR ---
REPORT RECEIVED FROM NIGHT RN AND PT. CARE RESUMED. PT. IS ALERTA AND ORIENTED TO ALL. HE IS UP IN THE CHAIR. PT. REPORTS WOUND VAC WAS DISCONNECTED OVERNIGHT AND BILLIE KRAUSE RECONNNECTED. WOUND VAC DRESSING APPEARS INTACT WITHOUT LEAKS AND SUCTION SET TO 120MMHG. PT. REPORTS PAIN HAS IMPROVED WITH PO PAIN MED. RIGHT THIGH PERIWOUND IS RED AND INDURATED. SLOUGH IN WOUNDBED VISIBLE AROUND BLACK FOAM. MEDS ADMIN. DISCUSSED AMBULATING AND POC. LEFT RESTING WITH CALL LIGHT IN REACH.
--- NOTE | 2022-09-24 10:48 | NUR ---
PT CALL LIGHT ON. PT REQUESTS ASSISTANCE TO AMBULATE IN [place]. 1 PERSON ASSIST FOR LINE AND TUBE MANAGEMENT. PT AMBULATES WITH STAND BY ASSIST AND CANE X1 LAP IN [place] AND DOWN MAIN HALLWAY TO FRONT OF HOSPITAL. PT TOLARTING AMBULATION WELL AND STATES "MY LEG DEFFINATLY FEELS A LOT BETTER." PT BACK TO ROOM AND REMAINS UP TO CHAIR. PTS AT BEDSIDE, UPDATED ON PLAN OF CARE AND STATES HER QUESTIONS HAVE BEEN ANSWERED. PT REPORTS HE HAS BEEN MANAGING HIS BLOOD SUGARS AT HOME WITH "NO PROBLEM." PTS STATES SHE HAS BEEN TEACHING PT ABOUT CARBOHYDRATES. NO ADDITIONAL REQUESTS OR COMPLAINTS. WATER REFILLED. CALL LIGHT WITHIN REACH.
--- NOTE | 2022-09-24 13:33 | NUR ---
SENIOR STAFF SPECIALIZED EMPLOYMENT REPORT PT WOULD LIKE TO AMBULATE. PT UP WITH 1 PERSON ASSIST FOR LINE AND TUBE MANAGEMENT. PT AMBUALTES X1 LAP IN [place]. PT REPORTS 5/10 PAIN WITH AMBULATION AND REQUESTS PAIN MEDICAITON, SEE MAR FOR MEDICATION GIVEN. PT BACK TO ROOM AND BACK TO BED. PT REPORTS HE WOULD LIKE TO TAKE A NAP THIS AFTERNOON. WOUND VAC REMAINS WNL WITH SUCTION IN PLACE. PT DENEIS ADDITIONAL REQUESTS OR COMPLAINTS. CALL LIGHT WITHIN REACH. BED RAILS UP.
--- NOTE | 2022-09-24 13:59 | NUR ---
PT. URINAL EMPTIED. MEDS ADMIN. WOUND VAC IS ALARMING OF A BLOCKAGE. TUBING MANIPULATED AND ALARM RESOLVED. DRESSING INTACT AND SUCTION PATENT. LEFT RESTING WITH CALL LIGHT IN REACH.
--- NOTE | 2022-09-24 15:00 | NUR ---
REDNESS AROUND RIGHT THIGH WOUND APPEARS TO HAVE INCREASED. OUTLINED REDDNESS. CMS REMAINS INTACT AND NO CHANGE IN PAIN AND VITALS STABLE. WILL CONTINUE TO MONITOR.
--- NOTE | 2022-09-24 15:17 | NUR ---
DID PATIENT BLOOD SUGAR CHECK FOR BREAKFAST AND LUNCH.
--- NOTE | 2022-09-24 19:15 | NUR ---
ASSUMED CARE OF PATIENT UPON RECEIVING BEDSIDE HANDOFF REPORT FROM DAY NURSE. PT RESTING IN BED, NAD, NO C/O. PAIN WELL-CONTROLLED. WILL CONTINUE TO MONITOR AND FOLLOW POC.
--- NOTE | 2022-09-24 19:56 | NUR ---
IN ROOM TO ROUND ON pt, pt AWAKE AND REPORTS IV PUMP IS ALARMING. ISSUE RESOLVED. IV SITE WNL, NEW BAG IV FLUIDS INFUSING DIRECTED. VSS, i&O'S ALSO CHARTED. WOUND VAC TO RIGHT INNER THIGH REMAINS INTACT AND TO SUCTION DIRECTED-120MMHG. pt STATES, "I REALLY AM A FAN OF THIS WOUND VAC". POC DISCUSSED FOR SHIFT, QUESTIONS ANSWERED. CALL LIGHT IN REACH AND PRIMARY RN IN ROOM WITH pt.
--- NOTE | 2022-09-24 21:18 | NUR ---
CALL LIGHT ANSWERED, pt REPORTS "BEEPING". THIS RN IN ROOM TO ASSESS, WOUND VAC ALARMING, REPORTS POSSIBLE BLOCKAGE. TROUBLESHOOTING READ ON ALARM SCREEN AND ISSUE RESOLVED, WOUND VAC REMAINS TO SUCTION DIRECTED AND WORKING WNL, PRIMARY RN NOW IN ROOM FOR MED PASS.
--- NOTE | 2022-09-25 06:45 | NUR ---
PT WITH NO ACUTE EVENTS OVERNIGHT. MULTIPLE TIMES NPWT ALARMED WITH A BLOCKAGE. BLOCKAGE ALARM RESOLVED AFTER REPOSITIONING TUBING. PT EDUCATED ON IMPORTANCE OF NOTIFYING STAFF IMMEDIATELY UPON HEARING ALARM FOR BEST OUTCOMES. WILL CONTINUE TO MONITOR AND FOLLOW POC.
--- NOTE | 2022-09-25 07:34 | NUR ---
REPORT RECEIVED FROM BILLIE COLON. PT RESTING IN BED ON BACK. WOUND VAC ALAMRING "BLOCKAGE." LINE STRAIGHTENED, WOUND VAC RESET. SUCTION IN PLACE AT 120MMHG WITH GREEN LIGHT FLASHING. PT REPORTS 3/10 PAIN AND DENIES NEED FOR PAIN MEDICATION AT THIS TIME. NO ADDITIONAL REQUESTS OR COMPLAINTS. CALL LIGHT JAN HANNA. BED RAILS UP.
--- NOTE | 2022-09-25 08:10 | NUR ---
PT RESTING IN BED. PT REPORTS BEING VERY TIRED TODAY. WHITE BOARD UPDATED, CALL LIGHT IN REACH, BLOOD SUGAR CHECKED. NO FURTHER NEEDS AT THIS TIME.
--- NOTE | 2022-09-25 08:50 | NUR ---
THIS RN TO ROOM TO CHECK ON PT. PT RESTING WITH EYES CLOSED ON BACK. RESPIRATIONS EVEN AND UNLABORED. WOUND VAC WNL. NO ADDITIONAL NEEDS AT THIS TIME. PT ALLOWED TO REST.
--- NOTE | 2022-09-25 09:26 | NUR ---
PT AWAKE IN BED. CALL LIGHT IN REACH. URINAL EMPTIED. VITALS DONE. NO FURTHER NEEDS AT THIS TIME.
--- NOTE | 2022-09-25 09:40 | NUR ---
MORNING ASSESSMENT AND MEDICATION DUE. PT RESTING IN BED, AWAKE AND ALERT. PT REPORTS 2/10 PAIN IN RIGHT UPPER LEG AT THIS TIME. PT DENIES NEED FOR ADDITONAL PAIN MEDICATION. PT DENIES NAUSEA. GOOD APPITITE NOTED FOR BREAKFAST. PT ALERT AND ORIENTD TO ALL. CMS INTACT TO ALL EXTREMITIES. LUNG SOUNDS CLEAR. HEART TONES REGULAR. WOUND VAC REMAINS IN PLACE WNL BUT FOR FREQUENT "BLOCKAGE" ALARMS. USUALLY RESLOVED WITH REPOSITIONGING OF TUBING AND/OR PT. FIRM REDNESS CONTINUES SURROUDING WOUND VAC SITE. WARM TO TOUCH. REDNESS REMAINS WITHIN MARKED AREAS. ANTICIPATING WOUND VAC DRESSING CHANGE BY DR. POWELL TODAY. PT VERBALIZES UNDERSTANDING OF PLAN OF CARE AND STATES ALL HIS QUESTIONS HAVE BEEN ANSWERED. SEROUSANGUINOUS DRAINAGE NOTED IN CANISTER. PT DECLIENS TIME UP TO CHAIR AT THIS TIME. NO ADDITIONAL REQUESTS OR COMPLAINTS. CALL LIGHT WIHTIN REACH. BED RAILS UP.
--- NOTE | 2022-09-25 11:50 | NUR ---
WOUND VAC CONTINUES TO ALARM FREQUESNTLY "BLOCKAGE." DR POWELL CALLED AND STATES HE WILL BE TO BEDSIDE SOON FOR DRESSING CHANGE, SUPPLIES AT BEDSIDE. PAIN MEDICATION GIVEN IN ANTICIPATION OF DRESSING CHANGE. PT VISITING WITH HIS . ENSURE PROVIDED FOR LUNCH PER PT REQUEST. NO ADDITIONAL NEEDS AT THIS TIME. CALL LIGHT WITHIN REACH. BED RAILS UP.
--- NOTE | 2022-09-25 13:08 | NUR ---
DR. POWELL TO BEDSIDE FOR WOUND VAC CHANGE. AFTERNOON ASSESSMENT DUE. WOUND VAC PUMP ALARMING "BLOCKAGE." DRESSING REMOVED BY DR. POWELL. NECROTIC WHITE SLOUGH TISSUE REMOVED FROM EDGES OF WOUND NEAR 3-6 O'CLOCK POSIITONS. BASE OF WOUND SHOWS GRANULATING TISSUE. PHOTOGRAPHS TAKEN. WOUND MEASURES 11CM BY 9CM AND IS 3CM DEEP. WHITE SLOUGH UNSTABEL ESCHAR REMOVED BY DR. POWELL. 1 CM OF UNDERMINING NOTED AROUND CIRCUMFRENCE OF WOUND. NEW WOUND VAC DRESSING PLACED BY DR. POWELL. 120MMHG NEGATIVE SUCTION THERAPY APPLIED WITH GREEN LIGHT FLASHING. EDGES OF WOUND BED CONTINUE TO BE REDDENED AND SWOLLWEN/INDURATED. EDGES OF REDNESS/SWELLING AND INDURATION MARKED WITH SKIN MARKER. ASSESSMENT PERFORMED POST DRESSING CHANGE. PT REMAINS ALERT AND ORIENTD TO ALL. HEART TONES REGULAR. LUNG SOUNDS CLEAR. CMS REMAINS INTACT WITH NO CHANGES TO CIRCULATION, SENSATION OR STRENGTH. PT VISITING WITH HIS . LUNCH AT BEDSIDE. PT REPORTS PAIN WAS 2/10 PRIOR TO DRESSING CHANGE AND 5-7/10 WITH DRESSING CHANGE. AFTER DRESSING CHANGE PAIN IMPROVES TO 4/10, SEE MAR FOR MEDICATION GIVEN. NO ADDITIONAL REQUSTS OR COMLAINTS. CALL LIGHT WITHIM REACH. PT VISITING WITH HIS . PT AND VERBALIZE UNDERSTANDING OF PLAN OF CARE AND STATE THEIR QUESTIONS HAVE BEEN ANSWERED.
--- NOTE | 2022-09-25 14:44 | NUR ---
THIS RN TO ROOM TO CHECK ON PT. PT RESTING IN BED ON LEFT SIDE, VISITING WITH . PT ENCOURAGED TO GET UP TO AMBULATE AND STATES "MAYBE LATER WHEN THE IV IS DONE." IV MEROPENEM NEAR COMPLETION. WILL SALINE LOCK IV ONCE FINISHED. PT REPORTS 2/10 PAIN IN RIGHT UPPER LEG THAT IS WELL CONTROLLED. NO ADDITIONAL REQUSETS OR COMPLAINTS. CALL LIGHT WITHIN REACH. BED RAILS UP.
--- NOTE | 2022-09-25 15:31 | NUR ---
PT SLEEPING. AT BEDSIDE. STOPPED IV AB WAS DONE. WILL UNHOOK WHEN PT AWAKES.
--- NOTE | 2022-09-25 16:12 | NUR ---
PT CALL LIGHT ON. PT REQUESTS TO GET UP TO AMBULATE. STAND BY ASSIST UP TO AMBUALTE IN [place] X1 LAP. WOUND VAC REMAINS WNL. NO ALARMS NOTED. GREEN LIGHT FLASHING. NO ADDITONAL REQUESTS OR COMPLAINTS. PT BACK TO ROOM AND UP TO CHAIR. FAMILY AT BEDSIDE. CALL LIGHT WIHTIN REACH.
--- NOTE | 2022-09-25 16:53 | NUR ---
PT POST OP DAY 3 AFTER I&D OF RIGHT MEDIAL THIGH NECROTIC TISSUE. PT UP WITH STAND BY ASSIST AND CANE TO CHAIR AND AMBULATE IN [place] THIS SHIFT. PT TOLEARTING 60G CARB DIET WITH GOOD APPITITE. BLOOD SUGAR CHECKS WITH SLIDING SCALE INSULIN WITH MEALS THIS SHIFT. CMS REMAINS INTACT. REDNESS TO THIGH WOUND OUTLINED. WOUND VAC DRESSING CHANGE AND DEBRIEDMENT PERFORMED BY DR. POWELL THIS SHIFT. WOUND VAC REMAINS WNL SINCE THAT TIME WITH GREEN LIGHT FLASHING. PRN PAIN MEDICATION GIVEN. PTS AT BEDSIDE THROUGHOUT SHIFT. PT VOIDING QUANITTY SUFFICIENT. PT USES CALL LIGHT AND MAKES NEEDS KNOWN.
--- NOTE | 2022-09-25 17:40 | NUR ---
THIS RN TO ROOM TO CHECK ON PT. EVENING MEDICATIONS GIVEN. WOUND VAC REMAINS WNL WITH GREEN LIGHT FLASHING AND SUCTION IN PLACE. NO RECORDABLE DRAINAGE NOTED IN WOUND VAC CANISTER. VITALS SIGNS STABLE. PT FINISHED WITH DINNER. PT ASKING QUESTIONS ABOUT PLAN OF CARE. EDUCATION DONE WITH PT REGARDING PLAN OF CARE. PT REPORTS HIS QUESTIONS HAVE BEEN ANSWERED. WATER REFILLED. NO ADDITIONAL REQUESTS OR COMPLAINTS. CALL LIGHT WIHTIN REACH. BED RAILS UP.
--- NOTE | 2022-09-25 18:30 | NUR ---
THIS RN TO ROOM TO CHECK ON PT. PT RESTING ON RIGHT SIDE WITH EYES CLOSED. RESPRIATIONS EVEN AND UNLABORED. PT AWAKENS TO MOVEMENT IN THE ROOM AND REPORT HIS PAIN IS WELL CONTROLLED. WOUND VAC REMAINS WNL WITH GREEN LIGHT FLASHING. PT DENIES ADDITIONAL REQUESTS OR COMPLAINTS. PT REQUSTS REPORT BE DONE IN HALLWAY TONIGHT HE WOULD LIKE TO REST. CALL LIGHT WITHIN REACH. BED RAILS UP.
--- NOTE | 2022-09-25 19:11 | NUR ---
ASSUMED CARE OF PT UPON RECEIVING BEDSIDE HANDOFF REPORT FROM DAY NURSE. PT SLEEPING BUT EASILY AROUSED. PT HAS ASKED NOT TO BE DISTURBED. PT WITH NAD, NO C/O. WILL CONTINUE TO MONITOR AND FOLLOW POC.
--- NOTE | 2022-09-25 20:45 | NUR ---
SBA. PATIENT WALKED IN THE HALLWAY X1. PATIENT IS BACK IN BED. V/S AND I&O'S TAKEN AND CHARTED. BLOOD SUGAR CHECK DONE AND RECORDED. PRIMARY RN NOTIFIED. REFRESHED WATER. PATIENT DENIES FURTHER CARE OR NEEDS.
--- NOTE | 2022-09-26 02:54 | NUR ---
PATIENT CALLED. WATER PROVIDED. EMPTIED URINAL. PATIENT STATED "ANOTHER THING WHY I CALLED IS TO MAKE SURE YOU ALL ARE OKAY". PATIENT WAS AWAKENED BY THE LIGHTS ON AND OFF. NO OTHER NEEDS AT THIS TIME.
--- NOTE | 2022-09-26 03:10 | NUR ---
PT AWAKE IN BED. NAD, NO C/O. PAIN WELL-CONTROLLED. NO CHANGE FROM PREVIOUS ASSESSMENT.
--- NOTE | 2022-09-26 07:15 | NUR ---
PT WITH NO ACUTE OVERNIGHT EVENTS. VSS, NAD. PT AMBULATED IN [place] WITH BIOCHEMISTRY TECHNICIAN DURING THE SHIFT. PT WITH STEADY GAIT. NPWT DRESSING INTACT AND THERAPY CONTINUES TO BE DELIVERED. HANDED OFF CARE OF PT TO DAY NURSE DURING BEDSIDE REPORT.
--- NOTE | 2022-09-26 07:27 | NUR ---
REPORT RECEIVED FROM BILLIE COLON. PT RESTING IN BED ON RIGHT SIDE. PT REPORTS 2/10 PAIN IN RIGHT THIGH AT THIS TIME AND DENIES NEED FOR PAIN MEDICATIONS. PT REQUESTS TIME TO REST THIS MORNING. WOUND VAC WNL WITH SMALL AMOUNTS OF SEROUS ANGUINOUS DRAINAGE NOTED IN CANISTER. 120MMHG NEGATIVE PRESSURE IN PLACE. GREEN LIGHT FLASHING. PT DENIES ADDITIONAL REQUESTS OR COMPLAINTS. CALL LIGHT WITHIN REACH. BED RAILS UP.
[2022-09-26] MEDS ORDERED: CIPROFLOXACIN500 MG PO (08:31)
[2022-09-26] MEDS ORDERED: DOXYCYCLINE HY100 MG PO (08:32)
[2022-09-26] MEDS ORDERED: ACETAMINOPHEN500 MG PO (08:32)
[2022-09-26] MEDS ORDERED: HYDROMORPHONE HC4 MG PO (08:32)
[2022-09-26] MEDS ORDERED: METRONIDAZOLE250 MG PO (08:32)
--- NOTE | 2022-09-26 09:29 | NUR ---
MORNING ASSESSMENT AND MEDICATION DUE. DR. POWELL TO BEDSIDE TO ROUND ON PT AND REVIEWE PLAN FOR DISCHARGE. PT VERBALIZES UNDERSTANDING OF DISCHARGE PLAN, STATES HIS QUESTIONS HAVE BEEN ANSWERED AND STATES HE IS READY TO GO HOME. PT RPEORTS 4/10 PAIN IN RIGHT LEG AT THIS TIME AND REQUESTS MEDICAITON PRIOR TO DISCHARGE, SEE MAR FOR MEDICATION GIVEN. HEART TONES REGULAR. LUNG SOUNDS CLEAR. ABDOMEN SOFT AND NON TENDER. WOUND TO RIGHT THIGH UNCHNAGED SINCE LAST NIGHT. REDNESS WITHIN OUTLINED AREA AROUND WOUND VAC SPOUNGE. 120MMHG NEGATIVE PRESSURE APPLIED BY WOUND VAC AND SPOUNGE DEPRESSED, WNL. SMALL AMOUNTS OF SEROUS ANGUINOUS FLUID NOTED IN WOUND VAC CANISTER, UNMEASURABLE SINCE LAST NIGHT. PT UP TO DRESS SELF, NO ASSISTANCE NEEDED. WOUND VAC CHANGED TO SMALL OUTPATIENT UNIT. 120MM HG NEGATIVE PRESSURE SUCTION CONTINUES. EDUCATION DONE WITH PT REGARDING WHAT TO WATCH FOR AND REPORT REGARDING WOUND VAC FUNCTION AND HEALING. PT VERBALIZES UNDERSTANDING. DISCHRAGE INSTRUCTIONS REVEIWED WITH PT VERBALZIES UNDERSTANDING OF INSTRUCTIONS, FOLLOW UP, HOME WOUND CARE, WOUND VAC CARE, DRESSING CHANGES AND MEDICATIONS. PT STATES HIS QUESTIONS HAVE BEEN ANSWERED. PT REPORTS IV LINE WAS REMOVED LAST NIGHT. PHARAMCIST TO BEDSIDE TO REVIEW MEDICATIONS WITH PT. PT DENIES ADDITIONAL REQUESTS OR COMPLAINTS. TECHNICAL SALES REPRESENTATIVES TO BEDSIDE TO ASSIST PT WITH PACKIGN BELONGINGS. AWIATING PTS RIDE HOME. NO ADDITIONAL REQUESTS OR COMPLAINTS.
--- NOTE | 2022-09-26 10:16 | NUR ---
PTS FAMILY ARRIVED. PT TRANSFERES SELF TO WHEELCHAIR AND IS WHEELED FROM MED/SURG BY [employer] [employer]. PT REPORTS HE HAS NO ADDITIONAL QUESTIONS OR CONCERNS.
--- NOTE | 2022-09-27 11:06 | OR ---
[facility] [address], [place] [address] Signed DATE OF OPERATION: 09/22/2022 SURGEON: Michael Powell MD PREOPERATIVE DIAGNOSES: 1. Necrotizing soft tissue infection, right medial thigh. 2. Diabetes mellitus. POSTOPERATIVE DIAGNOSIS: 1. Necrotizing soft tissue infection, right medial thigh. 2. Diabetes mellitus. PROCEDURES: 1. Extensive debridement of necrotic subcutaneous fat, skin, and fascia right proximal medial thigh defect size 12 x 9 x 4 cm. 2. Application of wound VAC device. ANESTHESIA: General, LMA, Michael Stanton CRNA. EBL: 150 mL. INDICATION: This 32-year-old diabetic man was admitted to the hospital, followed on the hospital service between August 31 and September 11 with significant right medial thigh cellulitis. At the time of discharge, he had some necrosis of the skin noted and was referred to the wound care clinic. Various measures were used for management of the wound necrosis. I was consulted on the basis of his lack of progress and worsening of erythema and swelling of his right proximal thigh. He is a patient of Dr. Gudino. I saw him in my outpatient clinic yesterday where he was noted to have a very inflamed and edematous and enlarged proximal medial right thigh with necrotic skin in a serpiginous configuration with weeping of serous fluid. On that basis, he was directly admitted to the hospital from my office for further management. He has been fluid resuscitated, given intravenous antibiotic meropenem and is now to undergo debridement of the wound. The patient and his understand the risk of bleeding, infection, need for extensive removal of necrotic tissue, and likely need for elaborate closure in the future including skin grafting or rotational flap application. Understand this, they wished to proceed. Electronically Signed By: MICHAEL POWELL MD 09/23/22 1311 Electronically Signed By: MICHAEL POWELL MD 09/29/22 0829 PATIENT NAME: PASQUALE MCDANIEL OPERATIVE REPORT DATE OF : [birth year] REPORT #: [id number] PHYSICIAN: MICHAEL POWELL MD PCP: LUCA GUDINO MD REPORT IS CONFIDENTIAL AND NOT TO BE RELEASED WITHOUT AUTHORIZATION [facility] [address], [place] [address] Signed FINDINGS: Indeed frankly necrotic skin and fat was noted in the area quite obvious, but also extending laterally, medially, superiorly and inferiorly. Debridement of necrotic fat and soft tissue was undertaken down to the muscular fascia ultimately. The wound VAC device was applied. The wound was irrigated with Irrisept (dilute chlorhexidine) was soaking for greater than 2 minutes as well as irrigation and removal of all necrotic tissue so far as can be told. The wound VAC is applied at 120 mm pressure. DESCRIPTION OF PROCEDURE: The patient was brought to the operating room, given a general LMA type anesthetic. Preoperative antibiotic meropenem had been ongoing. He has been receiving heparin subcutaneously. A frog leg position was deemed most advisable under the circumstances for exposure. Photographs were taken. The right leg was prepared with a chlorhexidine solution and draped sterilely. Using a 15-blade, the obviously necrotic skin and dermis was excised down through the subcutaneous fat which was necrotic as well. Complete excision of this was undertaken. Examination medially and laterally showed undermining and additional necrotic fatty tissue. Gram stain and cultures were obtained both in the deep layers and in the more superficial layers. Debridement was undertaken with sharp dissection. Hemostats were applied to bleeding vessels. A banjo type curette was used to debride tissue more fully. The wound was then irrigated copiously with saline solution and the deepest fascial layer additionally debrided now demarcated as to viable or not. Irrisept solution (dilute Hibiclens) was allowed to soak in the wound for over 2 minutes with sponge approach. Hemostasis was assured with interrupted 2-0 Vicryl suture as necessary or electrocautery. A wound VAC sponge was cut to the configuration measuring 9 x 12 x 4 cm and applied to 220 mmHg suction. Blood loss was significant at 150 mL, but the wound and surrounding cellulitic change of the leg is already much improved. Michael Powell MD Electronically Signed By: MICHAEL POWELL MD 09/23/22 1311 Electronically Signed By: MICHAEL POWELL MD 09/29/22 0829 PATIENT NAME: PASQUALE MCDANIEL OPERATIVE REPORT DATE OF : [birth year] REPORT #: [id number] PHYSICIAN: MICHAEL POWELL MD PCP: LUCA GUDINO MD REPORT IS CONFIDENTIAL AND NOT TO BE RELEASED WITHOUT AUTHORIZATION [facility] [address] [place] [id number] Signed /MODL /[id number] cc: MD Nicolas Rosario MD Copies: LUCA GUDINO MD, LOHITH MD ~ Electronically Signed By: MICHAEL POWELL MD 09/23/22 1311 Electronically Signed By: MICHAEL POWELL MD 09/29/22 0829 PATIENT NAME: PASQUALE MCDANIEL OPERATIVE REPORT DATE OF : [birth year] REPORT #: [id number] PHYSICIAN: MICHAEL POWELL MD PCP: LUCA GUDINO MD REPORT IS CONFIDENTIAL AND NOT TO BE RELEASED WITHOUT AUTHORIZATION
--- NOTE | 2022-09-27 14:09 | PATH ---
[facility] [address] [facility] [place], [place] [address] Signed SPECIMEN(S): A RIGHT THIGH CELLULITIS SPECIMEN SOURCE: A. RIGHT THIGH CELLULITIS CLINICAL HISTORY: Right thigh cellulitis FINAL PATHOLOGIC DIAGNOSIS: Soft tissue, right thigh, excision: - Skin and soft tissue with dense acute and chronic inflammation and necrosis. BRP:maye:C2NR MICROSCOPIC EXAMINATION: Histologic sections of all submitted blocks are examined by light microscopy. These findings, together with the gross examination, support the pathologic diagnosis. GROSS DESCRIPTION: The specimen, labeled and designated "Mcdaniel, Pasquale, A," and designated on the requisition as "skin, subq tissue, fascia (products of debridement), right thigh cellulitis"," is received in formalin and consists of multiple orellana to yellow, markedly ragged, rubbery unoriented tissue pieces from 2.2 up to 12.2 cm in greatest dimension. Rare areas of robbins possible skin are grossly identified amongst the tissue fragments. The possible skin areas measure 1.0 up to 4.2 cm in greatest dimension and are without place discrete mass/lesion. The skin segments are surrounded by orellana to brown discolored tissue. The specimen is cross sectioned to reveal yellow to brown somewhat marbled tissue with focal areas of yellow to robbins-white, chalky discoloration. Customer [employer] Representative sections are submitted in 4 cassettes (A1-A4). AI (under the direct supervision of a pathologist) The Gross Description was prepared using a voice recognition system. The report was reviewed for accuracy; however, sound-alike word errors, addition and/or deletions may occur. If there is any question about this report, please contact Client Services. PERFORMING LABORATORY: The technical component was performed by [employer], Marizol Foy, PATIENT NAME: PASQUALE MCDANIEL PATHOLOGY DATE OF : [birth year] REPORT #: [id number] PHYSICIAN: [facility] PCP: LUCA SYED MD REPORT IS CONFIDENTIAL AND NOT TO BE RELEASED WITHOUT AUTHORIZATION [address] [place], [place] [address] [place] [address] (CLIA# [id number]). Professional interpretation was performed by [facility], [address] [address] (CLIA#: [id number]). Diagnostician: Evin Kearns MD Pathologist Electronically Signed 09/27/2022 Copies: ~ PATIENT NAME: PASQUALE MCDANIEL PATHOLOGY DATE OF : [birth year] REPORT #: [id number] PHYSICIAN: [facility] BAXTER PCP: LUCA SYED MD REPORT IS CONFIDENTIAL AND NOT TO BE RELEASED WITHOUT AUTHORIZATION
--- NOTE | 2022-09-29 08:29 | DS ---
[facility] [address] [place], [place] [address] Signed ADMISSION DATE: 09/21/2022 DISCHARGE DATE: 09/26/2022 REASON FOR ADMISSION: This 32-year-old white man is diabetic and was hospitalized between September 01 and September 11 at [facility] under the hospitalist service, initially evaluated by Dr. Bridgett Dolan. He was found to have severe cellulitis in the medial upper right thigh area. He does have an ongoing problem of chronic eczema including the right lower extremity below the knee. His primary provider is [facility]. He is also seen by Dr. Gudino in the same office. His comorbidities include diabetes and hypertension. The patient was discharged to home under the care of wound care clinic. He was found to have necrotic tissue in the central aspect of the area of cellulitis and was referred to my office where I saw him in consultation. He quite clearly had significant necrosis of the soft tissue of the medial upper right thigh and was admitted directly for further evaluation and care. It is notable that he has had a CT scan in the past, which had shown soft tissue swelling and concerns for possible deep venous thrombosis. His initial hospitalization was to the intensive care unit for sepsis and severe cellulitis. His antibiotics as an outpatient included cefdinir and doxycycline. PERTINENT PHYSICAL EXAMINATION: GENERAL: Showed a pleasant white man, not systemically toxic. VITAL SIGNS: Temperature of 97.4, pulse 92, blood pressure 134/84. CHEST: Clear. HEART: Regular without murmur. ABDOMEN: Nondistended and nontender. EXTREMITIES: Right lower extremity showed erythematous and edematous medial right thigh with serpiginous area of yellow eschar necrotic tissue. There is opening of the eschar allowing for drainage of serous fluid. The right bates had chronic dermatitis from presumed eczema. There was no evidence clinically of deep venous thrombosis. Left lower extremity was normal. A 2 to 3 cm nodule is noted in the right medial calf with cord-like extension proximally suggestive of resolving thrombophlebitis. There was no tenderness and no erythema. LAB STUDIES: Admission showed a white count of 7.2, hematocrit 36, platelets 650,000. Chem profile with creatinine of 1.14. Calcium was 9.4. Serology negative for coronavirus . HOSPITAL COURSE: Electronically Signed By: MICHAEL POWELL MD 09/29/22 0829 PATIENT NAME: PASQUALE MCDANIEL DISCHARGE SUMMARY DATE OF : [birth year] REPORT #: [id number] PHYSICIAN: MICHAEL POWELL MD PCP: LUCA GUDINO MD REPORT IS CONFIDENTIAL AND NOT TO BE RELEASED WITHOUT AUTHORIZATION [facility] [address] [place] [id number] Signed On September 22, 2022, he underwent operative debridement of the area of the right medial upper thigh. An extensive debridement was required as there was necrotic tissue and evidence of abscess type fluid. The defect was ultimately noted to be 12 x 9 x 4 cm. A wound VAC was applied after complete debridement was performed. Postoperatively, he had progressive improvement. He is maintained on broad-spectrum antibiotic meropenem, which was started at the time of his admission. Gram stain showed polymicrobial infection with growth of both gram-positive cocci and gram-negative rods. He had progressive improvement with diminishment of localized erythema and edema. On September 26, I have personally changed his wound VAC sponge. He had impressive granulation of most of the wound. The base of the wound represented the muscular compartment itself. Inferiorly, debridement was undertaken sharply without discomfort. The wound VAC was reapplied at 120 mmHg suction. By day of discharge, he is doing much better. He is transitioned to oral antibiotic, doxycycline, Cipro, and Flagyl pending definitive culture results. FOLLOWUP PLANS: He is going to return to the Wound Care Clinic twice a week and I will inspect his wound at that time. DISCHARGE MEDICATIONS: 1. Cipro 500 mg p.o. b.i.d. #14. 2. Flagyl 250 mg p.o. t.i.d. #21. 3. Doxycycline 100 mg tablets one tablet p.o. b.i.d. 4. Dilaudid 4 mg tablets 1 to 2 p.o. p.r.n. dressing change #20. 5. Tylenol 500 mg two tablets p.o. q.8 hours as needed #60, refill 1. 6. He will continue with his usual diabetes regimen, which includes insulin glargine 100 units per vial, 40 units subcutaneously with dinner. Insulin lispro Humalog 100 units/mL subcutaneous per sliding scale. 7. He will discontinue Cefdinir antibiotic at this time. DISCHARGE DIAGNOSES: 1. Necrotizing soft tissue infection, right medial upper thigh, status post extensive debridement and application of wound VAC; wound defect 12 x 9 x 4 cm. 2. Underlying diabetes mellitus. 3. History of sepsis with cellulitis of right lower extremity. 4. Underlying eczema. Electronically Signed By: MICHAEL POWELL MD 09/29/22 0829 PATIENT NAME: PASQUALE MCDANIEL DISCHARGE SUMMARY DATE OF : [birth year] REPORT #: [id number] PHYSICIAN: MICHAEL POWELL MD PCP: LUCA GUDINO MD REPORT IS CONFIDENTIAL AND NOT TO BE RELEASED WITHOUT AUTHORIZATION [facility] [address] [place], [place] [address] Signed MD RUSSELL Monson/PAZL /[id number] cc: MD Dr. Renetta Madden MD Copies: BRIDGETT DOLAN MD, LOHITH MD ~ Electronically Signed By: MICHAEL POWELL MD 09/29/22 0829 PATIENT NAME: PASQUALE MCDANIEL DISCHARGE SUMMARY DATE OF : [birth year] REPORT #: [id number] PHYSICIAN: MICHAEL POWELL MD PCP: LUCA GUDINO MD REPORT IS CONFIDENTIAL AND NOT TO BE RELEASED WITHOUT AUTHORIZATION
== END 2022-09-26 10:15 | disposition home or self-care (01) | DRG 572 ==
LOC: MS 15:12
PROVIDERS: ADMIT Surgery; ATTEND Surgery
PROC: 0JBL0ZZ Excision of Right Upper Leg Subcutaneous Tissue and Fascia, Open Approach (ICD-10-PCS; principal; 2022-09-22 12:00)
DX: L03.115 Cellulitis of right lower limb (principal); Z20.822 Contact with and (suspected) exposure to COVID-19; L30.9 Dermatitis, unspecified; E11.9 Type 2 diabetes mellitus without complications; Z79.2 Long term (current) use of antibiotics; Z79.4 Long term (current) use of insulin; Z79.899 Other long term (current) drug therapy
CPT/HCPCS: 01250; 36415; 80048; 85025; 87070; 87075; 87205; 87502; 94762; A9270; J1100; J1644; J1815; J1885; J2185; J2250; J2405; J2704; J2765; J3010; J7121; U0003